=== PATIENT | male | born 1935 | race Asian ===

== ENCOUNTER 2019-09-23 17:54 | Inpatient (IN) | payer OTHER ==
[~2019-09-23] VITALS: Ht 152.4 cm; Wt 66.7 kg
[~2019-09-23 17:54] MED LIST: ALBUTEROL SULFATE IH; ASPI-1093 PO; BACI1PAC TP; CALC-106 GT; COL100L GT; DONE10TA10 PO; FLOR250 PO; GLIM2TAB GT; IPRATROPIUM IH; LANS30EC3 GT; MEMA10TA GT; METF850T GT; MULT5SOL7 GT; PIPE1SOL IV; SLIDE SUBQ; [UNRECOGNIZED DRUG - CODE] GT
[2019-09-23 18:02] VITALS: BP 120/68
--- NOTE | 2019-09-23 18:32 | NUR ---
PATIENT PRESENTS TO ED VIA GURNEY FROM [facility]. STAFF AT FACILITY REPORTING DECREASE 02 SAT AT 90% AND ALOC. +FEVER -N/V REPORTED -PAIN -. PERLLA SLUGGISH 2MM. PT IS NON-VERBAL AND UNABLE TO FOLLOW COMMANDS. GCS 9. PT IS ABLE TO WITHRAW FOREARM TO PAIN. UNABLE TO ASSESS MOTOR STRENGTH. SKIN IS WARM/DRY; LUNGS WITH CRACKLES THROUGHOUT; HR EVEN AND REGULAR; PATIENT POSITIONED FOR COMFORT; HOB ELEVATED; BEDRAILS UP X2; BED DOWN. ER MD MADE AWARE OF PT STATUS.
[2019-09-23 18:48] LABS: BASOPHILS # (AUTO) 0.1 K/uL (0.00-0.22); BASOPHILS % (AUTO) 0.5 % (0.0-2.0); EOSINOPHILS # (AUTO) 0.1 K/uL (0-0.4); EOSINOPHILS % (AUTO) 0.6 % (0.0-4.0); HEMATOCRIT 41.4 % (36-52); HEMOGLOBIN 13.5 g/dL (12.0-18.0); LYMPHOCYTES # (AUTO) 2.2 K/uL (2.0-11.5); LYMPHOCYTES % (AUTO) 18.2 % (20.5-51.1); MEAN CORPUSCULAR HEMOGLOBIN 28 pg (27-31); MEAN CORPUSCULAR HGB CONC 33 g/dL (33-37); MEAN CORPUSCULAR VOLUME 84.2 fL (80-94); MONOCYTES # (AUTO) 0.9 K/uL (0.8-1.0); MONOCYTES % (AUTO) 7.6 % (1.7-9.3); NEUTROPHILS # (AUTO) 8.6 K/uL (1.8-7.7); NEUTROPHILS % (AUTO) 73.1 % (42.2-75.2); PLATELET COUNT (AUTO) 275 K/uL (140-450); RED BLOOD CELL COUNT(AUTO) 4.92 MIL/uL (4.20-6.10); RED CELL DISTRIBUTION WIDTH 14.3 % (11.6-13.7); WHITE BLOOD COUNT (AUTO) 11.8 K/uL (4.8-10.8)
[2019-09-23] MEDS ORDERED: ACETAMINOPHEN 650 MG SUPP RC ONE (18:55)
[2019-09-23 19:01] LABS: ALBUMIN 3.9 g/dL (3.4-5.0); ANION GAP 17.8 (8-16); ASPARTATE AMINOTRANSFERASE 22 U/L (15-37); CARBON DIOXIDE 22.7 mmol/L (21-32); CHLORIDE 100 mmol/L (98-107); GLUCOSE 160 mg/dL (74-106); POTASSIUM 4.5 mmol/L (3.5-5.1); SODIUM SERUM 136 mmol/L (136-145); TOTAL BILIRUBIN 0.9 mg/dL (0.0-1.0); UREA NITROGEN, BLOOD 19 mg/dL (7-18)
[2019-09-23] MEDS ORDERED: NACL 0.9% 1,000 ML IV ONE ×2 (19:10→20:10)
[2019-09-23 19:14] LABS: APPEARANCE,URINE CLEAR (CLEAR); BILIRUBIN,URINE NEGATIVE (NEGATIVE); BLOOD, URINE TRACE-I (NEGATIVE); COLOR,URINE YELLOW (YELLOW); LEUKOCYTE ESTERASE ,URINE NEGATIVE (NEGATIVE); NITRITE, URINE NEGATIVE (NEGATIVE); PH,URINE 5.5 (5.0-9.0); UGLUCOSE NEGATIVE (NEGATIVE)
[2019-09-23 19:19] LABS: RBC,URINE NONE SEEN /HPF (0-5); WBC,URINE NONE SEEN /HPF (0-5)
--- NOTE | 2019-09-23 19:20 | NUR ---
REPORT TO AUGUSTINE CRISTOBAL. ALL CARE TRANSFERED.
[2019-09-23] MEDS ORDERED: cefTRIAXone 1,000 MG VIAL ONE (19:27)
--- NOTE | 2019-09-23 19:43 | NUR ---
Dr. Arnett examining patient.
--- NOTE | 2019-09-23 20:00 | NUR ---
PT IN BED. COOLING MEASURES CONTINUED. VSS. NO RESPIRATORY DISTRESS. CONTINUE TO MONITOR.
[2019-09-23] MEDS ORDERED: VANCOMYCIN 1,000 MG in DEXTROSE 5% 250 ML IV ONE (20:10)
[2019-09-23] MEDS ORDERED: MEROPENEM 1,000 MG in NACL 0.9% 100 ML IV ONE (20:10)
[2019-09-23] MEDS ORDERED: VANCOMYCIN 1,000 MG VIAL ONE (20:18)
[2019-09-23] MEDS ORDERED: MEROPENEM 500 MG VIAL IV ONE (20:44)
[2019-09-23] MEDS ORDERED: MORPHINE SULFATE 2 MG/ML SYR IVP PRN (20:50)
[2019-09-23] MEDS ORDERED: HYDROcodone/APAP 7.5/325 MG 1 TAB PO PRN (20:50)
[2019-09-23] MEDS ORDERED: ONDANSETRON 4 MG/2 ML VIAL IM/IVP PRN (20:50)
[2019-09-23] MEDS ORDERED: MEROPENEM 1,000 MG VIAL IV ONE (20:58)
--- NOTE | 2019-09-23 21:00 | NUR ---
PT HAS PRODUCTIVE COUGH. SUCTION PROVIDED AT BEDSIDE. PT TOLLERATED WELL. AUDIBLE WHEEZING HEARD. ER MD MADE AWARE. VSS. MILD RESPIRATORY DISTRESS WITH O2SAT OF 99% WITH NC 3LPM. CONTINUE TO MONITOR.
[2019-09-23] MEDS ORDERED: ACETAMIN/CODEINE 120/12MG-5ML 5 ML UDC PO ONE (21:10)
[2019-09-23] MEDS ORDERED: LORazepam 2 MG/ML VIAL IVP PRN (21:25)
[2019-09-23] MEDS ORDERED: ATOR40TA PO (21:28)
[2019-09-23] MEDS ORDERED: GLIP5TER PO (21:29)
[2019-09-23] MEDS ORDERED: METF1000 PO (21:30)
[2019-09-23] MEDS ORDERED: ALBUTEROL SULFATE/IPRATROPIU 3 ML SOL IH PRN (21:30)
[2019-09-23 21:33] LABS: CHOL/HDL RATIO 2.8 (1-4.5); FREE T4 (FREE THYROXINE) 1.12 ng/dL (0.76-1.46); MAGNESIUM 2.1 mg/dL (1.8-2.4); PHOSPHORUS 3.3 mg/dL (2.5-4.9); THYROID STIMULATING HORMONE 0.87 uIU/mL (0.34-3.74)
[2019-09-23] MEDS ORDERED: SLIDE SUBQ (21:35)
[2019-09-23 21:37] LABS: PROTHROMBIN TIME 10.4 secs (10.8-13.4)
[2019-09-23] MEDS ORDERED: OMEP20TC12 PO (21:38)
--- NOTE | 2019-09-23 22:00 | NUR ---
PT IN BED RESTING WITH EYES CLOSED. NO RESPIRATORY DISTRESS. VSS. PREPARING TO TRANSFER TO [facility]. CONTINUE TO MONITOR.
[2019-09-23 22:30] VITALS: BP 101/65
--- NOTE | 2019-09-23 22:30 | NUR ---
REPORT GIVEN AND CARE TRANSFERED TO KATYA BRADSHAW ROOM 121B. TRANSFERED VIA GURNEY WITH VSS.
--- NOTE | 2019-09-23 22:30 | NUR ---
RECEIVED PT FROM ER NURSE, SUSU. PT CAME IN [facility], NOT AMBULATORY. NO SOB NOTED. BREATHING EVEN AND UNLABORED WITH 3LPM O2 VIA NC. IV SITE ON LEFT HAND, 24G. PATENT, INTACT AND ASYMPTOMATIC. SKIN WARM AND DRY TO TOUCH. NO OPEN WOUND. DISCOLORATION NOTED ON GROIN AREA FOLLOWED BY DIAPER LINE. PHOTO TAKEN. MRSA NARES SWAB DONE. BOARD UPDATED. PT APHASIC. DX: PNA, SEPSIS. FALL PRECAUTION IN PLACE. STANDARD PRECAUTION IN PLACE. BED IN LOW POSITION, CALL LIGHT WITHIN REACH.
[2019-09-24] VITALS: BP 99/63
--- NOTE | 2019-09-24 | NUR ---
VS CHECKED, WITHIN PT'S BASELINE. WILL CONTINUE TO MONITOR.
[2019-09-24] MEDS: NACL 0.9% 1,000 ML IV SCH ×2 (02:00→16:36)
--- NOTE | 2019-09-24 02:00 | NUR ---
CHANGED FLUID RATE TO 60MLS/HR MD ORDERED. PT TOLERATED WELL.
[2019-09-24 04:00] VITALS: BP 139/61
--- NOTE | 2019-09-24 04:05 | NUR ---
VS CHECKED, WITHIN PT'S BASELINE, WILL CONTINUE TO MONITOR.
[2019-09-24] MEDS ORDERED: PIPERACILLIN/TAZOBACTAM 3.375 GM VIAL IV ONE (04:33)
[2019-09-24] MEDS: PIPERACILLIN/TAZOBACTAM 3.375 GM in DEXTROSE 5% 50 ML IV SCH ×3 (04:40→20:46)
--- NOTE | 2019-09-24 04:40 | NUR ---
GIVEN ZOSYN MD ORDERED. PT TOLERATED WELL. WILL CONTINUE TO MONITOR. BED IN LOW POSITION, CALL LIGHT WITHIN REACH.
--- NOTE | 2019-09-24 06:39 | NUR ---
PT SLEEPING IN BED. NO ACUTE DISTRESS NOTED.
[2019-09-24] MEDS: ALBUTEROL SULFATE/IPRATROPIU 3 ML SOL IH SCH ×3 (07:10→19:23)
--- NOTE | 2019-09-24 07:20 | NUR ---
RECEIVED PT FROM NIGHT NURSE. PT ASLEEP IN BED. NO DISTRESS NOTED. RESPIRATIONS EVEN AND UNLABORED ON O2 NC 3L. SKIN INTACT. IV IN PLACE L HAND 24G PATENT ASYMPTOMATIC INFUSING PER ORDER. SAFETY MEASURES IN PLACE. BED IN LOW POSITION. CALL LIGHT WITHIN REACH. WILL CONTINUE TO MONITOR.
[2019-09-24 07:45] LABS: BASOPHILS # (AUTO) 0.1 K/uL (0.00-0.22); BASOPHILS % (AUTO) 0.6 % (0.0-2.0); EOSINOPHILS # (AUTO) 0.2 K/uL (0-0.4); EOSINOPHILS % (AUTO) 1.3 % (0.0-4.0); HEMATOCRIT 37.2 % (36-52); HEMOGLOBIN 12.2 g/dL (12.0-18.0); LYMPHOCYTES # (AUTO) 1.5 K/uL (2.0-11.5); LYMPHOCYTES % (AUTO) 10.3 % (20.5-51.1); MEAN CORPUSCULAR HEMOGLOBIN 28 pg (27-31); MEAN CORPUSCULAR HGB CONC 33 g/dL (33-37); MEAN CORPUSCULAR VOLUME 84.4 fL (80-94); MONOCYTES # (AUTO) 1.1 K/uL (0.8-1.0); NEUTROPHILS # (AUTO) 11.5 K/uL (1.8-7.7); NEUTROPHILS % (AUTO) 79.8 % (42.2-75.2); PLATELET COUNT (AUTO) 289 K/uL (140-450); WHITE BLOOD COUNT (AUTO) 14.4 K/uL (4.8-10.8)
[2019-09-24 08:00] VITALS: BP 104/49
--- NOTE | 2019-09-24 08:22 | NUR ---
PATIENT HAS BEEN SCREENED AND CATEGORIZED HIGH NUTRITION RISK. PATIENT WILL BE SEEN WITHIN 1-2 DAYS OF ADMISSION. 09/24/19-09/25/[address]
[2019-09-24] MEDS: DOCUSATE 100 MG/10 ML UDC GT SCH (08:27)
[2019-09-24] MEDS: MEMANTINE 10 MG TAB PO SCH ×2 (08:27→20:47)
[2019-09-24] MEDS: LANSOPRAZOLE 30 MG CAPDR PO SCH (08:27)
[2019-09-24] MEDS: metFORMIN 500 MG TAB PO SCH ×2 (08:27→16:52)
[2019-09-24] MEDS: ATORVASTATIN 20 MG TAB PO SCH (08:28)
--- NOTE | 2019-09-24 08:31 | NUR ---
MEDICATIONS ADMINISTERED PER ORDER. PT TOELRATED WELL. NO DISTRESS NOTED. WILL CONTINUE TO MONITOR.
[2019-09-24 09:54] LABS: ANION GAP 16.9 (8-16); CARBON DIOXIDE 21.2 mmol/L (21-32); CHLORIDE 103 mmol/L (98-107); GLUCOSE 179 mg/dL (74-106); POTASSIUM 4.1 mmol/L (3.5-5.1); SODIUM SERUM 137 mmol/L (136-145)
[2019-09-24 09:55] LABS: CREATININE 0.9 mg/dL (0.7-1.3); UREA NITROGEN, BLOOD 16 mg/dL (7-18)
--- NOTE | 2019-09-24 10:52 | NUR ---
PT LYING IN BED SLEEPING, NO DISTRESS NOTED. FLACC 0. SAFETY MEASURES IN PLACE. WILL CONTINUE TO MONITOR.
[2019-09-24 12:00] VITALS: BP 105/49
--- NOTE | 2019-09-24 13:28 | NUR ---
STRONG NPC SATURATION 98% ON SUPPLEMENTAL OXYGEN AT 3 LPM VIA NC POST HHN THERAPY TITRATED FIO2 TO 2LPM JAN/RN NOTIFIED
--- NOTE | 2019-09-24 13:40 | NUR ---
*S.T. Bedside swallow eval completed* See report. Pt presents w/ adequate oropharyngeal swallow function for textures given. Pt edentulous and his reported baseline diet is pureed w/ nectar thick liquids. No overt s/s aspiration observed while COLOR CHECKER ROVING OR YARN fed pt lunch tray, observed by clinician. Recommend: 1) Continue current diet of puree with nectar thick liquids. Straws okay. 2) Crush P.O. meds and mix w/ puree such as applesauce. 3) 1:1 feeder w/ aspiration precautions. 4) Aggressive oral care. Pt is observed to be functioning at his reported baseline level. No further swallow tx indicated at this time. DC to [facility]. Endorsed to AUGUSTINE Potts. Time 8019-1299 Addendum: 09/24/19 at 1354 by Dina VALLES FNS to provide nectar thick bedside water.
--- NOTE | 2019-09-24 13:42 | NUR ---
RECEIVED CALL FROM RT. AFTER BREATHING TREATMENT O2 NC WAS MODIFIED TO 2L FROM 3L. WILL CONTINUE TO MONITOR.
--- NOTE | 2019-09-24 14:23 | NUR ---
09/24/19 RD INITIAL ASSESSMENT COMPLETED PLEASE REFER TO NUTRITION ASSESSMENT UNDER CARE ACTIVITY FOR ESTIMATED NUTRITIONAL NEEDS. 1. RECOMMEND CCHO, PUREE DIET 2. MODIFY DIET PER ST RECOMMENDATIONS 3. RD TO FOLLOW-UP 3-5 DAYS, MODERATE RISK BOBY BRADLEY, RD
[2019-09-24 16:00] VITALS: BP 106/67
[2019-09-24] MEDS ORDERED: RIVAROXABAN 10 MG TAB PO SCH ×2 (16:30)
--- NOTE | 2019-09-24 16:41 | NUR ---
MEDICATIONS ADMINISTERED PER ORDER. PT TOLERATED WELL. NO DISTRESS NOTED. SAFETY MEASURES IN PLACE. WILL CONTINUE TO MONITOR.
[2019-09-24] MEDS: RIVAROXABAN 15 MG TAB PO SCH (16:56)
--- NOTE | 2019-09-24 19:12 | NUR ---
REPORT GIVEN TO NIGHT NURSE FOR CONTINUITY OF CARE.
--- NOTE | 2019-09-24 19:13 | NUR ---
RECEIVED BEDSIDE REPORT FROM DAY RN. PT IS APHASIC. ABLE TO FOLLOW SIMPLE COMMANDS. RESPIRATIONS EVEN AND UNLABORED ON O2 NC 3L. HAS SOME WHEEZING. SKIN INTACT. IV IN PLACE L HAND 24G PATENT ASYMPTOMATIC INFUSING PER ORDER. SAFETY MEASURES IN PLACE. BED IN LOW POSITION. CALL LIGHT WITHIN REACH. WILL CONTINUE TO MONITOR.
[2019-09-24 20:00] VITALS: BP 132/60
--- NOTE | 2019-09-24 20:46 | NUR ---
RHEA MEDICATIONS WERE CRUSHED AND GIVEN WITH APPLESAUCE. VITAL SIGNS ARE WITHIN NORMAL LIMITS. PT TOLERATED WELL. ALL NEEDS MET AT THIS TIME.
[2019-09-24] MEDS: DONEPEZIL 10 MG TAB PO SCH (20:47)
--- NOTE | 2019-09-24 20:47 | NUR ---
PATIENT GIVEN HHN TX, LANGUAGE BARRIER. PT RHONCHI BREATHSOUNDS BUT UNABLE TO GET PATIENT TO COUGH, DESPITE VERBAL AND DEMONSTRATED INSTRUCTIONS.
--- NOTE | 2019-09-24 22:38 | NUR ---
PT IS LAYING COMFORTABLY IN BED SLEEPING. CALL LIGHT IS WITHIN REACH. BED ALARM ON.
[2019-09-25] VITALS: BP 107/50
--- NOTE | 2019-09-25 00:15 | NUR ---
VITAL SIGNS ARE WITHIN NORMAL LIMITS. ALL NEEDS MET AT THIS TIME.
[2019-09-25] MEDS: NACL 0.9% 1,000 ML IV SCH ×3 (01:51→22:36)
--- NOTE | 2019-09-25 02:30 | NUR ---
PT IS SLEEPING COMFORTABLY IN BED. CHEST RISE AND FALL. ALL SAFETY MEASURES ARE IN PLACE.
[2019-09-25 04:00] VITALS: BP 102/55
--- NOTE | 2019-09-25 04:00 | NUR ---
VITAL SIGNS ARE WITHIN NORMAL LIMITS. ALL NEEDS MET AT THIS TIME. CALL LIGHT IS WITHIN REACH.
[2019-09-25] MEDS: PIPERACILLIN/TAZOBACTAM 3.375 GM in DEXTROSE 5% 50 ML IV SCH ×3 (04:57→21:04)
[2019-09-25 06:21] LABS: BASOPHILS # (AUTO) 0.1 K/uL (0.00-0.22); BASOPHILS % (AUTO) 0.6 % (0.0-2.0); EOSINOPHILS # (AUTO) 0.9 K/uL (0-0.4); EOSINOPHILS % (AUTO) 8.5 % (0.0-4.0); HEMOGLOBIN 11.4 g/dL (12.0-18.0); LYMPHOCYTES # (AUTO) 2.2 K/uL (2.0-11.5); LYMPHOCYTES % (AUTO) 20.3 % (20.5-51.1); MEAN CORPUSCULAR HEMOGLOBIN 28 pg (27-31); MEAN CORPUSCULAR HGB CONC 33 g/dL (33-37); MEAN CORPUSCULAR VOLUME 85.1 fL (80-94); MONOCYTES # (AUTO) 1.2 K/uL (0.8-1.0); MONOCYTES % (AUTO) 10.7 % (1.7-9.3); NEUTROPHILS # (AUTO) 6.6 K/uL (1.8-7.7); NEUTROPHILS % (AUTO) 59.9 % (42.2-75.2); PLATELET COUNT (AUTO) 219 K/uL (140-450); RED BLOOD CELL COUNT(AUTO) 4.12 MIL/uL (4.20-6.10); RED CELL DISTRIBUTION WIDTH 14.5 % (11.6-13.7)
--- NOTE | 2019-09-25 07:12 | NUR ---
GAVE BEDSIDE REPORT TO DAY RN. PT ENDORSED IN STABLE CONDITION.
[2019-09-25 07:17] LABS: ANION GAP 12.3 (8-16); CARBON DIOXIDE 25.7 mmol/L (21-32); CHLORIDE 108 mmol/L (98-107); CREATININE 0.7 mg/dL (0.7-1.3); GLUCOSE 177 mg/dL (74-106); SODIUM SERUM 142 mmol/L (136-145); UREA NITROGEN, BLOOD 17 mg/dL (7-18)
--- NOTE | 2019-09-25 07:30 | NUR ---
RECEIVED PT FROM NIGHT NURSE. PT ASLEEP AROUSABLE TO SPEECH. AAOX2. RESPIRATIONS EVEN AND UNLABORED ON ROOM AIR, BILATERAL CRACKLES PRESENT. IV IN PLACE PATENT AND ASYMPTOMATIC INFUSING PER ORDER IN L HAND 24G. SKIN INTACT. PT CLEANED AND CHANGED WITH GOVERNMENT OPERATIONS CONSULTANT AT THIS TIME. SAFETY MEASURES IN PLACE. BED IN LOW POSITION. CALL LIGHT WITHIN REACH. WILL CONTINUE TO MONITOR.
[2019-09-25] MEDS: ALBUTEROL SULFATE/IPRATROPIU 3 ML SOL IH SCH ×3 (07:41→20:28)
[2019-09-25 08:00] VITALS: BP 114/69
[2019-09-25] MEDS ORDERED: SODIUM PHOSPHATE 15 MMOLE in NACL 0.9% 250 ML IV SCH (09:30)
[2019-09-25] MEDS: MEMANTINE 10 MG TAB PO SCH ×2 (09:44→21:03)
[2019-09-25] MEDS: LANSOPRAZOLE 30 MG CAPDR PO SCH (09:44)
[2019-09-25] MEDS: metFORMIN 500 MG TAB PO SCH ×2 (09:44→16:41)
[2019-09-25] MEDS: DOCUSATE 100 MG/10 ML UDC GT SCH (09:44)
[2019-09-25] MEDS: ATORVASTATIN 20 MG TAB PO SCH (09:44)
[2019-09-25] MEDS: LACTOBACILLUS RHAMNOSUS GG 1 EACH CAP PO SCH (09:44)
--- NOTE | 2019-09-25 09:55 | NUR ---
MEDICATIONS ADMINISTERED PER ORDER. PT TOLERATED WELL. NO DISTRESS NOTED. FLACC 0. WILL CONTINUE TO MONITOR.
--- NOTE | 2019-09-25 12:14 | NUR ---
MEDICATIONS ADMINISTERED PER ORDER. PT TOLERATED WELL. WILL CONTINUE TO MONITOR.
--- NOTE | 2019-09-25 15:36 | NUR ---
PT WAS CHANGED AND REPOSITIONED WITH ADDRESS CHANGE CLERK. PT IN RIGHT SIDE POSITION. NO DISTRESS NOTED. WILL CONTINUE TO MONITOR.
[2019-09-25] MEDS: RIVAROXABAN 15 MG TAB PO SCH (16:41)
--- NOTE | 2019-09-25 16:51 | NUR ---
MEDICATIONS ADMINISTERED PER ORDER. PT TOLERATED WELL. WILL CONTINUE TO MONITOR.
[2019-09-25] MEDS ORDERED: glipiZIDE 5 MG TAB PO SCH (17:45)
--- NOTE | 2019-09-25 19:23 | NUR ---
REPORT RECEIVED FROM AM NURSE AT BEDSIDE. PT IN STABLE CONDITION. AAOX1-2. BOARD UPDATED. FLACC 0. NO SOB ON 2L O2 VIA NC. AFEBRILE. PT IS BEDBOUND. PT IS APHASIC. IV SITE L HAND 24G RUNNING NS@100ML/HR PATENT AND INTACT. SKIN WARM, DRY, AND INTACT WITH NO OPEN WOUNDS. BED LOCKED IN LOW POSITION. CALL NAGEL WITHIN REACH. SAFETY PRECAUTION IN PLACE. ALL NEEDS MET AT THIS TIME.
[2019-09-25] MEDS ORDERED: ACETYLCYSTEINE 10% (100 MG/ML) 100 MG/ML VIAL INH SCH (19:30)
--- NOTE | 2019-09-25 20:29 | NUR ---
RECEIVED PT ON 2L NC, SP02 97%. HOB>30. NO RESPIRATORY DISTRESS NOTED AT THIS TIME. TX GIVEN ORDERED. NO ADVERSE REACTION. WILL CONTINUE TO MONITOR PT
[2019-09-25] MEDS ORDERED: metFORMIN 500 MG TAB PO SCH (21:00)
[2019-09-25] MEDS: DONEPEZIL 10 MG TAB PO SCH (21:03)
--- NOTE | 2019-09-25 21:04 | NUR ---
LASHAESYN HUNG AND RUNNING. ARICEPT AND NAMENDA GIVEN PO WITH APPLESAUCE. PT TOLERATED WELL.
--- NOTE | 2019-09-25 22:30 | NUR ---
PT SLEEPING COMFORTABLY BUT AROUSABLE. NO S/S OF DISTRESS NOTED. WILL CONTINUE TO MONITOR.
--- NOTE | 2019-09-25 23:50 | NUR ---
PT SLEEPING COMFORTABLY BUT AROUSABLE. NO S/S OF DISTRESS NOTED. NO COMPLAINTS OF PAIN. NO SOB. AFEBRILE. WILL CONTINUE TO MONITOR.
[2019-09-26] VITALS: BP 134/69
--- NOTE | 2019-09-26 01:45 | NUR ---
PT SLEEPING COMFORTABLY BUT AROUSABLE. NO S/S OF DISTRESS NOTED. RESPIRATIONS EVEN, UNLABORED, AND WNL. WILL CONTINUE TO MONITOR.
[2019-09-26] MEDS: PIPERACILLIN/TAZOBACTAM 3.375 GM in DEXTROSE 5% 50 ML IV SCH ×3 (04:00→20:22)
--- NOTE | 2019-09-26 04:00 | NUR ---
ARIEL HUNG AND RUNNING. PT TOLERATING WELL.
[2019-09-26] MEDS: NACL 0.9% 1,000 ML IV SCH (04:06)
[2019-09-26] MEDS ORDERED: ACETYLCYSTEINE 10% (100 MG/ML) 100 MG/ML VIAL INH SCH (06:00)
[2019-09-26 06:06] LABS: BASOPHILS # (AUTO) 0.1 K/uL (0.00-0.22); BASOPHILS % (AUTO) 0.5 % (0.0-2.0); EOSINOPHILS # (AUTO) 1.2 K/uL (0-0.4); EOSINOPHILS % (AUTO) 11.5 % (0.0-4.0); HEMOGLOBIN 10.1 g/dL (12.0-18.0); LYMPHOCYTES % (AUTO) 18.9 % (20.5-51.1); MEAN CORPUSCULAR HEMOGLOBIN 28 pg (27-31); MEAN CORPUSCULAR HGB CONC 34 g/dL (33-37); MEAN CORPUSCULAR VOLUME 83.7 fL (80-94); MONOCYTES # (AUTO) 0.8 K/uL (0.8-1.0); MONOCYTES % (AUTO) 7.5 % (1.7-9.3); NEUTROPHILS # (AUTO) 6.6 K/uL (1.8-7.7); NEUTROPHILS % (AUTO) 61.6 % (42.2-75.2); PLATELET COUNT (AUTO) 216 K/uL (140-450); RED BLOOD CELL COUNT(AUTO) 3.58 MIL/uL (4.20-6.10); RED CELL DISTRIBUTION WIDTH 14.2 % (11.6-13.7); WHITE BLOOD COUNT (AUTO) 10.7 K/uL (4.8-10.8)
--- NOTE | 2019-09-26 06:30 | NUR ---
PT SLEEPING COMFORTABLY BUT AROUSABLE. PT IN STABLE CONDITION.
[2019-09-26 06:38] LABS: ANION GAP 13.1 (8-16); CARBON DIOXIDE 24.5 mmol/L (21-32); CHLORIDE 106 mmol/L (98-107); CREATININE 0.8 mg/dL (0.7-1.3); GLUCOSE 110 mg/dL (74-106); POTASSIUM 3.6 mmol/L (3.5-5.1); SODIUM SERUM 140 mmol/L (136-145); UREA NITROGEN, BLOOD 12 mg/dL (7-18)
[2019-09-26 07:01] LABS: MAGNESIUM 1.8 mg/dL (1.8-2.4); PHOSPHORUS 2.4 mg/dL (2.5-4.9)
--- NOTE | 2019-09-26 07:10 | NUR ---
RECEIVED BEDSIDE REPORT FROM RESPIRATORY THERAPY ASSISTANT NURSE FOR CONTINUITY OF CARE. PATIENT IS RESTING ON BED AT THIS TIME. AROUSABLE TO VOICE. UNABLE TO ASSESS NEURO DUE TO PATIENT IS NON-VERBAL. RESPIRATION EVEN AND UNLABORED ON 2LPM VIA NC. NO SIGNS OF DISTRESS NOTED. IV PATENT AND INTACT, INFUSING PER MD ORDER. PATIENT IS INCONTINENT AND BEDREST. SKIN INTACT AND CLEAN. ASPIRATION PRECAUTION IN PLACE. SAFETY MEASURES IN PLACE. BED IN LOW POSITION AND CALL LIGHT WITHIN REACH. FALL RISK PROTOCOL IN PLACE AND BED ALARM ACTIVATED.
[2019-09-26] MEDS: ALBUTEROL SULFATE/IPRATROPIU 3 ML SOL IH SCH ×3 (07:29→20:01)
[2019-09-26 08:00] VITALS: BP 111/53
[2019-09-26] MEDS ORDERED: metFORMIN 500 MG TAB PO SCH (08:00)
[2019-09-26] MEDS: glipiZIDE 5 MG TAB PO SCH (08:57)
[2019-09-26] MEDS: LACTOBACILLUS RHAMNOSUS GG 1 EACH CAP PO SCH (08:58)
[2019-09-26] MEDS: metFORMIN 500 MG TAB PO SCH ×2 (08:58→17:30)
[2019-09-26] MEDS: MEMANTINE 10 MG TAB PO SCH ×2 (08:58→20:22)
[2019-09-26] MEDS: LANSOPRAZOLE 30 MG CAPDR PO SCH (08:58)
[2019-09-26] MEDS: ATORVASTATIN 20 MG TAB PO SCH (08:59)
[2019-09-26] MEDS: DOCUSATE 100 MG/10 ML UDC GT SCH (08:59)
--- NOTE | 2019-09-26 08:59 | NUR ---
ADMINISTERED SCHEDULED MEDS PER MD ORDER, CRUSHED MEDS AND MIXED WITH APPLE SAUCE, THICKENED WATER FOR ASPIRATION PRECAUTION. MEDS EDUCATION PROVIDED TO PATIENT AND REINFORCEMENT NEEDED. PATIENT IS RESTING ON BED AT THIS TIME. RESPIRATION EVEN AND UNLABORED ON 2LPM VIA NC. NO SIGNS OF DISTRESS NOTED. SAFETY MEASURES IN PLACE. BED IN LOW POSITION AND CALL LIGHT WITHIN REACH. FALL RISK PROTOCOL IN PLACE AND BED ALARM ACTIVATED.
[2019-09-26] MEDS ORDERED: DEXTROSE 50% 50 ML SYR IVP PRN (09:25)
--- NOTE | 2019-09-26 09:40 | NUR ---
PATIENT IS RESTING ON BED AT THIS TIME. FLACC 0. RESPIRATION EVEN AND UNLABORED ON 2LPM VIA NC. NO SIGNS OF DISTRESS NOTED. SAFETY MEASURES IN PLACE. BED IN LOW POSITION AND CALL LIGHT WITHIN REACH. FALL RISK PROTOCOL IN PLACE AND BED ALARM ACTIVATED.
--- NOTE | 2019-09-26 11:20 | NUR ---
PATIENT IS RESTING ON BED AT THIS TIME. NO SIGNS OF DISTRESS NOTED. SAFETY MEASURES IN PLACE. BED IN LOW POSITION AND CALL LIGHT WITHIN REACH. BED ALARM ACTIVATED.
[2019-09-26] MEDS: BLOOD GLUCOSE MONITORING 1 DEV DEV FS SCH ×3 (11:30→20:23)
[2019-09-26] MEDS: INSULIN LISPRO SLIDING SCALE 100 UNITS/ML VIAL SUBQ PRN (12:36)
--- NOTE | 2019-09-26 12:36 | NUR ---
PATIENT GOT HIS LUNCH TRAY. ADMINISTERED 2 UNITS OF HUMALOG FOR BLOOD GLUCOSE 165, PATIENT TOLERATED WELL. THEATRE DIRECTOR IS ASSISTING PATIENT TO EAT LUNCH AT THIS TIME. NO SIGNS OF DISTRESS NOTED. SAFETY MEASURES IN PLACE. BED IN LOW POSITION AND CALL LIGHT WITHIN REACH. FALL RISK PROTOCOL IN PLACE AND BED ALARM ACTIVATED.
[2019-09-26] MEDS: ACETYLCYSTEINE 10% (100 MG/ML) 100 MG/ML VIAL INH SCH ×2 (13:25→20:01)
--- NOTE | 2019-09-26 13:31 | NUR ---
ADMINISTERED MED VIA IVPB, PATIENT TOLERATED WELL. PATIENT IS GETTING A BREATHING TREATMENT AT THIS TIME. NO SIGNS OF DISTRESS NOTED. SAFETY MEASURES IN PLACE. BED IN LOW POSITION AND CALL LIGHT WITHIN REACH. FALL RISK PROTOCOL IN PLACE AND BED ALARM ACTIVATED.
--- NOTE | 2019-09-26 15:25 | NUR ---
PATIENT IS RESTING ON BED AT THIS TIME. AROUDSABLE VOICE, RESPIRATION EVEN AND UNLABORED ON RA. FLACC 0. NO SIGNS OF DISTRESS NOTED. SAFETY MEASURES IN PLACE. BED IN LOW POSITION AND CALL LIGHT WITHIN REACH. FALL RISK PROTOCOL IN PLACE AND BED ALARM ACTIVATED.
--- NOTE | 2019-09-26 15:41 | NUR ---
Dc planning: Clinicals faxed to [facility] .
[2019-09-26 16:00] VITALS: BP 109/59
--- NOTE | 2019-09-26 16:14 | NUR ---
[facility] 1[facility]. Brad Garcia will arrange for transportation olive picker. Discharging nurse tomorrow will call [place] for time of olive picker for the pt. Alejandrina COUCH.
[2019-09-26] MEDS: RIVAROXABAN 15 MG TAB PO SCH (17:30)
--- NOTE | 2019-09-26 17:30 | NUR ---
ADMINISTERED SCHEDULED MEDS PER MD ORDER, CRUSHED MEDS AND MIXED WITH APPLE SAUCE, THICKENED WATER FOR ASPIRATION PRECAUTION. MEDS EDUCATION PROVIDED TO PATIENT AND REINFORCEMENT NEEDED. PATIENT IS RESTING ON BED AT THIS TIME. RESPIRATION EVEN AND UNLABORED ON RA. NO SIGNS OF DISTRESS NOTED. SAFETY MEASURES IN PLACE. BED IN LOW POSITION AND CALL LIGHT WITHIN REACH. FALL RISK PROTOCOL IN PLACE AND BED ALARM ACTIVATED.
--- NOTE | 2019-09-26 19:23 | NUR ---
ENDORSED PATIENT AT BEDSIDE TO TRUCKER NURSE FOR CONTINUITY OF CARE. PATIENT AWAKE AND RESTING ON BED. NO SIGNS OF DISTRESS NOTED. PATIENT IS IN STABLE CONDITION. SAFETY MEASURES IN PLACE. BED IN LOW POSITION AND CALL LIGHT WITHIN REACH. FALL RISK PROTOCOL IN PLACE AND BED ALARM ACTIVATED.
--- NOTE | 2019-09-26 19:24 | NUR ---
RECEIVED BEDSIDE REPORT FROM DAY SHIFT NURSEJACINTO FOR CONTINUITY OF CARE. PATIENT IS RESTING ON BED AT THIS TIME. AROUSABLE TO VOICE. UNABLE TO ASSESS NEURO DUE TO PATIENT IS NON-VERBAL. RESPIRATION EVEN AND UNLABORED ON 2LPM VIA NC. NO SIGNS OF DISTRESS NOTED. IV SITE ON LEFT HAND, 24G, PATENT, INTACT, AND ASYMPTOMATIC, INFUSING PER MD ORDER. PATIENT IS INCONTINENT AND BEDREST. SKIN INTACT AND CLEAN. ASPIRATION PRECAUTION IN PLACE. SAFETY MEASURES IN PLACE. BOARD UPDATED. BED IN LOW POSITION AND CALL LIGHT WITHIN REACH. FALL RISK PROTOCOL IN PLACE AND BED ALARM ACTIVATED.
[2019-09-26] MEDS: DONEPEZIL 10 MG TAB PO SCH (20:22)
--- NOTE | 2019-09-26 20:22 | NUR ---
BS CHECKED, 129. NO INSULIN COVERAGE NEEDED. GIVEN ZOSYN, ARICEPT, AND NAMENDA MD ORDERED. PT TOLERATED WELL.
--- NOTE | 2019-09-26 22:22 | NUR ---
PT AWAKE, LYING IN THE BED COMFORTABLY. NO ACUTE DISTRESS NOTED.
[2019-09-27] VITALS: BP 128/67
--- NOTE | 2019-09-27 00:05 | NUR ---
CHECKED VS, WITHIN PT'S BASELINE. WILL CONTINUE TO MONITOR.
--- NOTE | 2019-09-27 02:09 | NUR ---
PT SLEEPING IN BED. NO ACUTE DISTRESS NOTED. BED IN LOW POSITION, CALL LIGHT WITHIN REACH.
[2019-09-27] MEDS: NACL 0.9% 1,000 ML IV SCH (04:36)
[2019-09-27] MEDS: PIPERACILLIN/TAZOBACTAM 3.375 GM in DEXTROSE 5% 50 ML IV SCH ×2 (04:38→12:57)
--- NOTE | 2019-09-27 04:38 | NUR ---
GIVEN ZOSYN MD ORDERED. PT TOLERATED WELL. WILL CONTINUE TO MONITOR.
[2019-09-27] MEDS: BLOOD GLUCOSE MONITORING 1 DEV DEV FS SCH ×3 (06:47→16:57)
--- NOTE | 2019-09-27 06:48 | NUR ---
PT SLEEPING IN THE BED. NO ACUTE DISTRESS NOTED. BS CHECKED, 90. NO INSULIN COVERAGE NEEDED.
[2019-09-27 07:32] LABS: ANION GAP 10.1 (8-16); CARBON DIOXIDE 27.7 mmol/L (21-32); CHLORIDE 108 mmol/L (98-107); CREATININE 0.7 mg/dL (0.7-1.3); GLUCOSE 96 mg/dL (74-106); POTASSIUM 3.8 mmol/L (3.5-5.1); SODIUM SERUM 142 mmol/L (136-145); UREA NITROGEN, BLOOD 11 mg/dL (7-18)
--- NOTE | 2019-09-27 07:38 | NUR ---
RECEIVED BEDSIDE REPORT FROM VENDING TECHNICIAN NURSE FOR CONTINUITY OF CARE. PATIENT IS RESTING ON BED AT THIS TIME. AROUSAL TO VOICE. UNABLE TO ASSESS NEURO DUE TO PATIENT IS NON-VERBAL. RESPIRATIONS ARE EVEN AND UNLABORED ON RA. NO SIGNS OF DISTRESS OR PAIN NOTED. IV SITE ON LEFT HAND, 24G, PATENT, INTACT, AND ASYMPTOMATIC, INFUSING PER MD ORDER. PATIENT IS INCONTINENT AND ON BEDREST. SKIN IS INTACT AND CLEAN. ASPIRATION PRECAUTIONS IN PLACE. SAFETY MEASURES IN PLACE. BOARD UPDATED. BED IN LOW POSITION AND CALL LIGHT WITHIN REACH. FALL RISK PROTOCOL IN PLACE AND BED ALARM ACTIVATED FOR SAFETY. WILL ROUND FREQUENTLY ON PT.
[2019-09-27 07:39] LABS: MAGNESIUM 1.9 mg/dL (1.8-2.4); PHOSPHORUS 2.9 mg/dL (2.5-4.9)
[2019-09-27] MEDS: ALBUTEROL SULFATE/IPRATROPIU 3 ML SOL IH SCH ×2 (07:48→13:32)
[2019-09-27] MEDS: ACETYLCYSTEINE 10% (100 MG/ML) 100 MG/ML VIAL INH SCH ×2 (07:49→13:32)
[2019-09-27] MEDS ORDERED: RANI150C PO (07:55)
[2019-09-27 07:59] LABS: BASOPHILS % (AUTO) 0.3 % (0.0-2.0); EOSINOPHILS # (AUTO) 1.5 K/uL (0-0.4); EOSINOPHILS % (AUTO) 13.1 % (0.0-4.0); HEMATOCRIT 31.7 % (36-52); HEMOGLOBIN 10.3 g/dL (12.0-18.0); LYMPHOCYTES # (AUTO) 2.2 K/uL (2.0-11.5); LYMPHOCYTES % (AUTO) 19.3 % (20.5-51.1); MEAN CORPUSCULAR HEMOGLOBIN 28 pg (27-31); MEAN CORPUSCULAR HGB CONC 33 g/dL (33-37); MEAN CORPUSCULAR VOLUME 84.9 fL (80-94); MONOCYTES # (AUTO) 0.7 K/uL (0.8-1.0); MONOCYTES % (AUTO) 6.2 % (1.7-9.3); NEUTROPHILS # (AUTO) 6.8 K/uL (1.8-7.7); NEUTROPHILS % (AUTO) 61.1 % (42.2-75.2); PLATELET COUNT (AUTO) 255 K/uL (140-450); RED BLOOD CELL COUNT(AUTO) 3.74 MIL/uL (4.20-6.10); RED CELL DISTRIBUTION WIDTH 14.5 % (11.6-13.7); WHITE BLOOD COUNT (AUTO) 11.2 K/uL (4.8-10.8)
[2019-09-27] MEDS ORDERED: PIPE1SOL IV (07:59)
[2019-09-27 08:00] VITALS: BP 111/57
[2019-09-27] MEDS ORDERED: LACT-81 PO (08:00)
[2019-09-27] MEDS ORDERED: LANS15EC28 PO (08:31)
--- NOTE | 2019-09-27 09:21 | NUR ---
MORNING MEDS GIVEN . PT TOLERATED WELL. PT RESTING IN BED. ALL NEEDS MET. WILL CONTINUE TO ROUND FREQUENTLY ON PT. BED IN LOW POSITION, CALL LIGHT WITHIN REACH.
[2019-09-27] MEDS: DOCUSATE 100 MG/10 ML UDC GT SCH (09:36)
[2019-09-27] MEDS: MEMANTINE 10 MG TAB PO SCH (09:37)
[2019-09-27] MEDS: glipiZIDE 5 MG TAB PO SCH (09:37)
[2019-09-27] MEDS: LACTOBACILLUS RHAMNOSUS GG 1 EACH CAP PO SCH (09:37)
[2019-09-27] MEDS: metFORMIN 500 MG TAB PO SCH (09:38)
[2019-09-27] MEDS: ATORVASTATIN 20 MG TAB PO SCH (09:38)
[2019-09-27] MEDS: LANSOPRAZOLE 30 MG CAPDR PO SCH (09:40)
--- NOTE | 2019-09-27 11:24 | NUR ---
PT RESTING IN BED. ALL NEEDS MET. WILL CONTINUE TO ROUND FREQUENTLY ON PT. BED IN LOW POSITION, CALL LIGHT WITHIN REACH.
[2019-09-27] MEDS: INSULIN LISPRO SLIDING SCALE 100 UNITS/ML VIAL SUBQ PRN (13:01)
--- NOTE | 2019-09-27 13:39 | NUR ---
ALL NEEDS MET. WILL CONTINUE TO ROUND FREQUENTLY ON PT. BED IN LOW POSITION, CALL LIGHT WITHIN REACH.
--- NOTE | 2019-09-27 15:30 | NUR ---
PT SLEEPING. ALL NEEDS MET. WILL CONTINUE TO ROUND FREQUENTLY ON PT. BED IN LOW POSITION, CALL LIGHT WITHIN REACH.
--- NOTE | 2019-09-27 15:45 | NUR ---
WHITNEY [facility] AT [phone]. SHE SAID SHE IS NOT ABLE TO GET TRANSPORT AT THIS TIME. SHE SAID IF WE CAN ARRANGE TRANSPORT WITH [facility] THEN [facility]. [employer] CALLED AND SPOKE TO KITA AT [phone] HE SAID TRANSPORT WILL BE AT 5PM AND THEY WILL BILL [facility] BERNSTEIN RN IS AWARE
[2019-09-27 16:00] VITALS: BP 109/52
--- NOTE | 2019-09-27 16:40 | NUR ---
PT DISCHARGED BACK TO [facility]. PT DISCHARGE PAPERWORK UNABLE TO BE SIGNED. ALL DISCHARGE PAPERWORK INCLUDED IN DISCHARGE FOLDERS. PT IV LEFT IN FOR CONTINUATION OF ABX THERAPY. ALL PERSONAL BELONGINGS TAKEN HOME WITH PT. WRIST BAND REMOVED AND PLACED IN SHRED BIN. PT TRANSFERRED BY TRANSPORT TEAM. PT LEFT IN STABLE CONDITION.
== END 2019-09-27 16:50 | DRG 871 ==
LOC: MED 17:54 → MTU 20:51
PROVIDERS: ADMIT General Practice; ATTEND General Practice
DX: A41.9 Sepsis, unspecified organism (principal); J69.0 Pneumonitis due to inhalation of food and vomit; J96.01 Acute respiratory failure with hypoxia; E43 Unspecified severe protein-calorie malnutrition; R65.20 Severe sepsis without septic shock; E78.5 Hyperlipidemia, unspecified; E83.39 Other disorders of phosphorus metabolism; F03.90 Unspecified dementia, unspecified severity, without behavioral disturbance, psychotic disturbance, mood disturbance, and anxiety; I10 Essential (primary) hypertension; K21.9 Gastro-esophageal reflux disease without esophagitis; R13.10 Dysphagia, unspecified; Z66 Do not resuscitate; E11.65 Type 2 diabetes mellitus with hyperglycemia; Z79.01 Long term (current) use of anticoagulants; Z86.711 Personal history of pulmonary embolism; Z99.3 Dependence on wheelchair; Z79.84 Long term (current) use of oral hypoglycemic drugs; Z79.899 Other long term (current) drug therapy; Z68.28 Body mass index [BMI] 28.0-28.9, adult
CPT/HCPCS: 36415; 36600; 71045; 80048; 80053; 81001; 82550; 82803; 82948; 83036; 83605; 83735; 83880; 84100; 84439; 84443; 84484; 85025; 85610; 85730; 87040; 87081; 87086; 92610; 93005; 94640; 94667; 96365; 96366; 96367; 97110; 97161-GP; 97530; 99291; J0696; J1815; J2185; J2543; J3370; J7030; J7060; J7620; Q0092

== ENCOUNTER 2020-01-28 13:25 | Inpatient (IN) | payer OTHER ==
[~2020-01-28] VITALS: Ht 162.6 cm; Wt 63.0 kg
[2020-01-28 13:25] VITALS: BP 100/59
[~2020-01-28 13:25] MED LIST changes: -ALBUTEROL SULFATE IH; -ASPI-1093 PO; +ATOR40TA PO; -BACI1PAC TP; -CALC-106 GT; -FLOR250 PO; -GLIM2TAB GT; +GLIP5TER PO; -IPRATROPIUM IH; +LACT-81 PO; +LANS15EC28 PO; -LANS30EC3 GT; +METF1000 PO; -METF850T GT
--- NOTE | 2020-01-28 13:29 | NUR ---
PT VICKI ALS TO ER BED 6
--- NOTE | 2020-01-28 13:30 | NUR ---
84/M BIBA FROM [facility] FLU SYMPTOMS, WAS FLU A+. WAS GIVEN BREATHING [place] PREHOSPITAL. PT AWAKE, LETHARGIC, APHASIC AT THIS TIME, ABLE TO TRACK WITH EYES, SKIN NORMAL COLOR WARM AND DRY, SPO2 95% ON 4L NC, RR 30 EVEN AND MODERATELY LABORED, TEMP 99.6. LUNG SOUNDS WITH RHONCHI. S1S2 PRESENT, NSR ON MONITOR. BS ACTIVE X4, ABD SOFT ROUND NONTENDER. HX DM, GERD WITH DYSPHAGIA, HLD, ANEMIA, ANXIETY, CATARACT
[2020-01-28] MEDS ORDERED: NACL 0.9% 1,000 ML IV SCH ×2 (13:53→16:21)
[2020-01-28] MEDS ORDERED: cefTRIAXone 1,000 MG in DEXT 5% MINI-BAG PLUS 50 ML IV ONE (13:55)
[2020-01-28] MEDS ORDERED: cefTRIAXone 1,000 MG VIAL ONE (14:15)
[2020-01-28 14:23] LABS: BASOPHILS # (AUTO) 0.1 K/uL (0.00-0.22); BASOPHILS % (AUTO) 0.6 % (0.0-2.0); EOSINOPHILS % (AUTO) 0.2 % (0.0-4.0); HEMATOCRIT 37.3 % (36-52); HEMOGLOBIN 12.6 g/dL (12.0-18.0); LYMPHOCYTES # (AUTO) 2.8 K/uL (2.0-11.5); LYMPHOCYTES % (AUTO) 21.6 % (20.5-51.1); MEAN CORPUSCULAR HEMOGLOBIN 28 pg (27-31); MEAN CORPUSCULAR HGB CONC 34 g/dL (33-37); MEAN CORPUSCULAR VOLUME 81.3 fL (80-94); MONOCYTES # (AUTO) 0.9 K/uL (0.8-1.0); MONOCYTES % (AUTO) 6.7 % (1.7-9.3); NEUTROPHILS # (AUTO) 9.2 K/uL (1.8-7.7); NEUTROPHILS % (AUTO) 70.9 % (42.2-75.2); PLATELET COUNT (AUTO) 240 K/uL (140-450); RED BLOOD CELL COUNT(AUTO) 4.58 MIL/uL (4.20-6.10); RED CELL DISTRIBUTION WIDTH 15.4 % (11.6-13.7)
[2020-01-28 14:38] LABS: ALBUMIN 3.2 g/dL (3.4-5.0); ANION GAP 12.8 (8-16); ASPARTATE AMINOTRANSFERASE 38 U/L (15-37); CARBON DIOXIDE 23.1 mmol/L (21-32); CHLORIDE 101 mmol/L (98-107); CREATININE 1.1 mg/dL (0.6-1.3); GLUCOSE 188 mg/dL (74-106); POTASSIUM 3.9 mmol/L (3.5-5.1); SODIUM SERUM 133 mmol/L (136-145); TOTAL BILIRUBIN 0.9 mg/dL (0.0-1.0); UREA NITROGEN, BLOOD 23 mg/dL (7-18)
[2020-01-28 14:52] LABS: APPEARANCE,URINE CLEAR (CLEAR); BILIRUBIN,URINE NEGATIVE (NEGATIVE); BLOOD, URINE NEGATIVE (NEGATIVE); COLOR,URINE YELLOW (YELLOW); LEUKOCYTE ESTERASE ,URINE NEGATIVE (NEGATIVE); NITRITE, URINE NEGATIVE (NEGATIVE); PH,URINE 5.5 (5.0-9.0); UGLUCOSE 1+ (NEGATIVE)
--- NOTE | 2020-01-28 15:30 | NUR ---
PT AWAKE IN BED, LOOKING AROUND. NO DISTRESS NOTED AT THIS TIME
[2020-01-28] MEDS ORDERED: ALBUTEROL SULFATE/IPRATROPIU 3 ML SOL IH PRN (16:25)
[2020-01-28] MEDS ORDERED: HYDROcodone/APAP 5/325 MG 1 TAB TAB PO PRN (16:25)
[2020-01-28] MEDS ORDERED: ZOLPIDEM 5 MG TAB PO PRN (16:25)
[2020-01-28] MEDS ORDERED: MORPHINE SULFATE 2 MG/ML SYR IVP PRN (16:25)
[2020-01-28] MEDS ORDERED: DOCUSATE SODIUM 100 MG GELCAP PO PRN (16:25)
[2020-01-28] MEDS ORDERED: ACETAMINOPHEN 325 MG TAB PO PRN (16:25)
[2020-01-28] MEDS ORDERED: LORazepam 2 MG/ML VIAL IM/IVP PRN (16:25)
[2020-01-28] MEDS ORDERED: ONDANSETRON 4 MG/2 ML VIAL IM/IVP PRN (16:25)
[2020-01-28] MEDS ORDERED: NITROGLYCERIN 0.4 MG TAB SL PRN (16:30)
[2020-01-28] MEDS ORDERED: DEXTROSE 50% 50 ML SYR IVP PRN (16:35)
[2020-01-28] MEDS ORDERED: CALC-784 PO (17:00)
[2020-01-28] MEDS ORDERED: OMEP20TC10 PO (17:00)
[2020-01-28] MEDS ORDERED: METF-350 PO (17:00)
--- NOTE | 2020-01-28 17:00 | NUR ---
PT RESTING IN BED
[2020-01-28 17:09] LABS: PROTHROMBIN TIME 9.5 secs (10.8-13.4)
[2020-01-28 17:13] LABS: BARBITURATE, URINE NEGATIVE ng/ml (NEG <=200); BENZODIAZEPINE, URINE NEGATIVE ng/mL (NEG <=200); CANNABINOID, URINE NEGATIVE ng/mL (NEG <=50); COCAINE, URINE NEGATIVE ng/mL (NEG <=300); OPIATE, URINE NEGATIVE ng/mL (NEG <=2000); PHENCYCLIDINE SCREEN,URINE NEGATIVE ng/mL (NEG <=25)
[2020-01-28 17:19] LABS: CHOL/HDL RATIO 1.8 (1-4.5); PHOSPHORUS 2.1 mg/dL (2.5-4.9); THYROID STIMULATING HORMONE 1.33 uIU/mL (0.34-3.74)
[2020-01-28 17:30] VITALS: BP 102/57
--- NOTE | 2020-01-28 17:30 | NUR ---
SHIFT REPORT RECEIVED FROM ER NURSE BRIANA. PT CAME TO UNIT VIA GURNEY. ADMISSION ASSESSMENT DONE. PT ON O2 2L NC. SKIN INTACT . NOTED WITH SACRAL SCARS. SKIN INTACT. IV INTACT. PT IS AWAKE AND RESPONSIVE. PT IS AOX1. SAFETY MEASURES IN PLACE. WILL CONTINUE TO MONITOR. CALL LIGHT IN REACH.
--- NOTE | 2020-01-28 17:44 | NUR ---
Patient will be admitted to care of DR. ESPARZA. Admited to TELEMETRY. Will go to room 114. Belongings list completed. Report to AUGUSTINE DALAL.
[2020-01-28] MEDS: PIPERACILLIN/TAZOBACTAM 3.375 GM in DEXTROSE 5% 50 ML IV SCH (18:14)
[2020-01-28] MEDS ORDERED: HEPARIN PER PHARMACY MC PRN (18:15)
--- NOTE | 2020-01-28 19:18 | NUR ---
RECEIVED REPORT FORM MULUGETA BRADSHAW DAYSHIFT NURSE AT BEDSIDE FOR CONTINUITY OF CARE, PT IN STABLE CONDITION.
--- NOTE | 2020-01-28 19:31 | NUR ---
SHIFT REPORT GIVEN TO PRESSURE TESTING TECHNICIAN NURSE. PT IS IN STABLE CONDITION. CALL LIGHT IN REACH.
[2020-01-28] MEDS: ALBUTEROL SULFATE/IPRATROPIU 3 ML SOL IH SCH (19:42)
[2020-01-28 20:00] VITALS: BP 112/59
--- NOTE | 2020-01-28 20:00 | NUR ---
PT IN BED AND ON 2 LITERS N/C NOTED WITH INTERMITTED DRY COUGH. HE IS AOX1, WITH IV SITE ON RIGHT HAND INTACT AND RUNNING N/S AT 60MLS /HR. PT ALSO HAS CORONADO CATHETER INTACT AND DRAINED 200MLS OF DARK MONIKA URINE. PT V/S FOLLOWS: T 100.5 P 86 R 20 B/P 112/59 02 98% WITH 2 LITERS VIA N/C. PT HAS NO S/S OF PAIN OR DISTRESS NOTED, ALL FALLS AND DROPLET PRECAUTIONS IN PLACE.
--- NOTE | 2020-01-28 20:30 | NUR ---
SPOKE WITH WHITNEY FROM [facility] WHO SAID SHE WAS TRYING TO REACH PT DAUGHTER, SHE ALSO WANTED TO KNOW IF PT WAS BEING ADMITTED. CONFIRMED PT ADMISSION AND HOW PT CAN SWALLOW PILLS. REQUESTED THAT WE CALL PT SNF, [facility] IF WE HEAR FROM PT DAUGHTER.
[2020-01-28] MEDS: BLOOD GLUCOSE MONITORING 1 DEV DEV FS SCH (21:00)
[2020-01-28] MEDS ORDERED: ATORVASTATIN 20 MG TAB PO SCH (21:00)
--- NOTE | 2020-01-28 21:15 | NUR ---
ULTRA SOUND OF BILATERAL LOWER EXTREMITIES ARE BEING DONE AT BEDSIDE TO RULE OUT DVT. HEPARIN GTT ORDER PENDING.
[2020-01-28] MEDS: hePARIN / DEXT 5% PREMIX 250 ML IV SCH (21:48)
--- NOTE | 2020-01-28 21:50 | NUR ---
PT GIVEN ALL SCHEDULED MEDS AT THIS TIME INCLUDING PO/PRN TYLENOL FOR MILD FEVER. ICE PACKS ALSO PROVIDED. HEPARIN GTT STARTED PER PROTOCOL. BLOOD DRAWS DONE AT BEDSIDE FOR TROPONIN LEVEL. ALL FALLS AND DROPLET PRECAUTIONS IN PLACE.
[2020-01-28] MEDS: MEMANTINE 10 MG TAB GT SCH (22:06)
[2020-01-28] MEDS: ATORVASTATIN 20 MG TAB PO SCH (22:06)
[2020-01-28] MEDS: DONEPEZIL 10 MG TAB PO SCH (22:06)
[2020-01-28] MEDS ORDERED: CRUSHER, PILL MC ONE (22:08)
[2020-01-28] MEDS: OSELTAMIVIR PHOSPHATE 75 MG CAP PO SCH (22:09)
[2020-01-28] MEDS: METOPROLOL 25 MG TAB PO SCH (22:09)
--- NOTE | 2020-01-28 23:15 | NUR ---
SILVA FROM LAB CALLED TO REPORT CRITICAL LAB OF TROPONIN 0.246. RESIDENT MD ALONZO MADE AWARE, NO NEW ORDERS NOTED.
[2020-01-29] VITALS: BP 96/50
[2020-01-29] MEDS: PIPERACILLIN/TAZOBACTAM 3.375 GM in DEXTROSE 5% 50 ML IV SCH ×4 (02:00→17:39)
[2020-01-29 04:00] VITALS: BP 89/46
[2020-01-29] MEDS: BLOOD GLUCOSE MONITORING 1 DEV DEV FS SCH ×4 (05:24→21:55)
[2020-01-29 06:08] LABS: BASOPHILS # (AUTO) 0.1 K/uL (0.00-0.22); BASOPHILS % (AUTO) 0.7 % (0.0-2.0); EOSINOPHILS # (AUTO) 0.1 K/uL (0-0.4); EOSINOPHILS % (AUTO) 1.1 % (0.0-4.0); HEMATOCRIT 31.2 % (36-52); HEMOGLOBIN 10.5 g/dL (12.0-18.0); LYMPHOCYTES # (AUTO) 1.8 K/uL (2.0-11.5); LYMPHOCYTES % (AUTO) 20.1 % (20.5-51.1); MEAN CORPUSCULAR HEMOGLOBIN 27 pg (27-31); MEAN CORPUSCULAR HGB CONC 34 g/dL (33-37); MEAN CORPUSCULAR VOLUME 81.5 fL (80-94); MONOCYTES # (AUTO) 0.8 K/uL (0.8-1.0); MONOCYTES % (AUTO) 9.3 % (1.7-9.3); NEUTROPHILS # (AUTO) 6.2 K/uL (1.8-7.7); NEUTROPHILS % (AUTO) 68.8 % (42.2-75.2); PLATELET COUNT (AUTO) 196 K/uL (140-450); RED BLOOD CELL COUNT(AUTO) 3.83 MIL/uL (4.20-6.10); RED CELL DISTRIBUTION WIDTH 14.9 % (11.6-13.7)
[2020-01-29] MEDS ORDERED: DEXT 5% / NACL 0.9% 500 ML IV SCH (06:10)
[2020-01-29] MEDS: hePARIN / DEXT 5% PREMIX 250 ML IV SCH ×3 (06:33→22:56)
[2020-01-29 07:03] LABS: MAGNESIUM 1.7 mg/dL (1.8-2.4); PHOSPHORUS 2.2 mg/dL (2.5-4.9)
[2020-01-29 07:05] LABS: ANION GAP 13.1 (8-16); CARBON DIOXIDE 23.2 mmol/L (21-32); CHLORIDE 106 mmol/L (98-107); GLUCOSE 89 mg/dL (74-106); POTASSIUM 3.3 mmol/L (3.5-5.1); SODIUM SERUM 139 mmol/L (136-145); UREA NITROGEN, BLOOD 21 mg/dL (7-18)
--- NOTE | 2020-01-29 07:10 | NUR ---
RECEIVED PT FROM NIGHT NURSE IN STABLE CONDITION. PT AAOX1, DIVEHI SPEAKING, NO DISTRESS NOTED. RESPIRATIONS EVEN AND UNLABORED ON O2 VIA NC AT 2L. SKIN INTACT. IV IN PLACE PATENT AND ASYMPTOMATIC INFUSING PER ORDER IN R HAND 24G AND L FINGER 24G. CORONADO IN PLACE. SAFETY MEASURES IN PLACE. CALL LIGHT WITHIN REACH, BED IN LOW POSITION. WILL CONTINUE TO MONITOR.
[2020-01-29 08:00] VITALS: BP 107/59
[2020-01-29] MEDS ORDERED: POLYVINYL ALCOHOL 1.4% OP 15 ML SOL OP PRN (08:45)
[2020-01-29] MEDS: DEXT 5% /NACL 0.9% 1,000 ML IV SCH (08:55)
[2020-01-29] MEDS: ALBUTEROL SULFATE/IPRATROPIU 3 ML SOL IH SCH ×3 (09:20→19:30)
[2020-01-29] MEDS: METOPROLOL 25 MG TAB PO SCH ×2 (09:23→21:57)
[2020-01-29] MEDS: LACTOBACILLUS RHAMNOSUS GG 1 EACH CAP PO SCH (09:23)
[2020-01-29] MEDS: LISINOPRIL 5 MG TAB PO SCH (09:25)
[2020-01-29] MEDS: PANTOPRAZOLE 40 MG TABEC PO SCH (09:26)
[2020-01-29] MEDS: MEMANTINE 10 MG TAB GT SCH ×2 (09:26→21:55)
[2020-01-29] MEDS: ASPIRIN 81 MG TAB.CHEW PO SCH (09:26)
[2020-01-29] MEDS: OSELTAMIVIR PHOSPHATE 75 MG CAP PO SCH ×2 (09:26→21:57)
--- NOTE | 2020-01-29 09:30 | NUR ---
MEDICATIONS ADMINISTERED PER ORDER, PT TOLERATED WELL, NO DISTRESS NOTED, SAFETY MEASURES IN PLACE. CALL LIGHT WITHIN REACH. WILL CONTINUE TO MONITOR.
[2020-01-29] MEDS: glipiZIDE ER 5 MG TABER PO SCH (09:34)
--- NOTE | 2020-01-29 10:12 | NUR ---
R UA PICC LINE INSERTED AT THIS TIME, PLACEMENT VERIFIED WITH CXR. WILL CONTINUE TO MONITOR.
[2020-01-29] MEDS ORDERED: MAG SULF 2000 MG/WATER PREMIX 50 ML IV SCH (11:00)
[2020-01-29] MEDS ORDERED: MAG SULF 2000 MG/WATER PREMIX 50 ML IV ONE (11:25)
[2020-01-29] MEDS ORDERED: KCL 20 MEQ/WATER INJ PREMIX 100 ML IV SCH (11:30)
[2020-01-29 12:00] VITALS: BP 96/47
[2020-01-29] MEDS ORDERED: SODIUM PHOS / POTASSIUM PHOS 1 PKT PDR PO SCH (12:00)
--- NOTE | 2020-01-29 12:45 | NUR ---
MEDICATIONS ADMINISTERED PER ORDER, PT TOLERATED WELL, NO DISTRESS NOTED. SAFETY MEASURES IN PLACE, CALL LIGHT WITHIN REACH, WILL CONTINUE TO MONITOR.
--- NOTE | 2020-01-29 13:32 | NUR ---
NO TX GIVEN AT THIS TIME PT IS RECEIVING A SWALLOW EVALUATION AND THEN HEADING TO CT, RN AWARE
--- NOTE | 2020-01-29 14:10 | NUR ---
*S.T. Bedside Swallow Eval completed* See report for details. Pt presents w/ adequate oropharyngeal swallow function for textures given. No overt s/s aspiration. Pt able to self feed w/ min. assistance. Recommend: 1) Advance to regular diet, thin liquids. Straws okay. 2) P.O. meds okay whole, one at a time. 3) Nsg to assist w/ positioning and tray set up to promote self feeding. No further tx indicated at this time. DC to nsg care. Endorsed to AUGUSTINE Mathis. Time 9314-5919 Addendum: 01/29/20 at 1416 by Dina VALLES Please disregard previous note. WRONG PATIENT. S.T. BEDSIDE SWALLOW EVAL COMPLETED Pt presents w/ adequate oropharyngeal swallow for textures given. Pt edentulous and no dentures were present at bedside. No overt s/s aspiration observed. Pt unable to self-feed. Recommend: 1) Advance to pureed diet, thin liquids okay. Straws okay. 2) P.O. meds crushed and mixed w/ puree such as applesauce. 3) 1:1 feeder w/ aspiration precautions including: feed only when alert, seated upright at 90 degrees, small sips/bites at slow pace. Upright at 45 degrees for 30 min. after meals. Oral care 3x/day. No further tx indicated at this time due to pt's limited rehab potential. DC to nsg care. Endorsed to AUGUSTINE Potts. Addendum: 01/29/20 at 1435 by Dina VALLES PLEASE DISREGARD TWO PREVIOUS NOTES DUE TO ERRORS. Pt presents w/ moderate pharyngeal dysphagia for textures given. Pt edentulous and no dentures were present at bedside. Wet/gurgly voice after swallow of thin liquid via straw. Pt unable to self-feed. Recommend: 1) Advance to pureed diet, nectar thick liquids only. Straws okay. 2) P.O. meds crushed and mixed w/ puree such as applesauce. 3) 1:1 feeder w/ aspiration precautions including: feed only when alert, seated upright at 90 degrees, small sips/bites at slow pace. Upright at 45 degrees for 30 min. after meals. Oral care 3x/day. No further tx indicated at this time due to pt's limited rehab potential. DC to nsg care. Endorsed to AUGUSTINE Potts.
--- NOTE | 2020-01-29 14:15 | NUR ---
HEPARIN DRIP STOPPED AT THIS TIME PER ORDER FOR 1 HOUR. WILL RESUME AT 1515.
--- NOTE | 2020-01-29 14:52 | NUR ---
01/29/20 INITIAL ASSESSMENT COMPLETED PLEASE REFER TO NUTRITION ASSESSMENT UNDER CARE ACTIVITY FOR ESTIMATED NUTRITIONAL NEEDS. 1. CONTINUE NPO MEDICALLY APPROPRIATE 2. IF/WHEN MEDICALLY CLEARED TO BEGIN PO INTAKE [facility]SID[facility] WITH NECTAR THICK LIQUIDS 3. RD TO FOLLOW-UP 2-3 DAYS, HIGH RISK [address]
--- NOTE | 2020-01-29 15:21 | NUR ---
Machine Shorthand Reporter Note: Basic Screen: Yes High Risk DC Screen Yes Name: SVITLANA JEREZ Home Relationship: DAUGHTER Pre-Admission Living Arrangements: SNF Prior ADL Total/Dependent Current Home Health Name/Tel: N/A Current DME/02 Name/Tel: [facility] Current Hospice Name/Tel: N/A Current Dialysis Name/Tel: N/A Healthcare Decision Maker: Next of Kin Other: SVITLANA JEREZ - DAUGHTER Advance Directive No Physician Orders for Life Sustaining Treatment Form Yes Discipline: Case Mgt/Social Svcs Tentative Discharge Plan/Destination: SNF/ECF Will require assistance post discharge: No Referred to Route Sales Person: No Tentative Discharge Plan Summary: Patient is an 84-year-old male admitted for pneumonia and influenza. Patient has PMHX of diabetes, dementia, GERD, hypertension, HLD, anxiety, and cataract. Patient was admitted from [facility]. SW contacted Cathie from [facility] [phone]. Per Cathie, patient is senior living and is currently on a bed hold. Patient's healthcare decision maker is daughter, Svitlana Jerez. Patient needs total assistance with ADLs. Tentative discharge plan is to return to [facility]. No further needs identified. Signature: IVIS Dugan Date: Jan 29, 2020 Time: 14:32
--- NOTE | 2020-01-29 15:22 | NUR ---
DC PLANNIN YRS OLD MALE PATIENT WAS ADMITTED FROM [facility] , WITH A DX OF PNEUMONIA , INFLUENZA A POSITIVE . PT HAS A HX OF PE, DM, ALZHEIMER'S AND GERD. CXR SHOWED SHOWING BILATERAL PERIHILAR OPACITIES EDEMA OR BRONCHITIS .BLOOD,URINE AND SPUTUM CULTURE PENDING . STARTED ON ZOSYN IV TAMIFLU, RT PROTOCOL, IVF AND PULMO CONSULT WITH DR BENTLEY. DC PLAN TO GO BACK TO [facility] WHEN STABLE CM TO FOLLOW. Addendum: 01/30/20 at 1523 by Amanda Garcia CM DC PLANNING: PT HAS A DC ORDER TOGO BACK TO [facility] ON SUNDAY OR SUNDAY PER WHITNEY HERNANDEZ [facility] AND WILL ACCEPT PT SUNDAY CM TO FOLLOW Addendum: 02/02/20 at 1225 by Tiffanie Dawson RECEIVED A CALL FROM WHITNEY. SHE STATED SHE WILL BE HERE PROBABLY IN AN HOUR TO SEE THE PATIENT. Addendum: 02/02/20 at 1528 by Tiffanie Dawson CM PER MICHAEL ESTRELLA, NO ISO BED AT THIS TIME. WILL FOLLOW UP. Addendum: 02/02/20 at 1605 by Tiffanie Dawson CM RECEIVED A DC ORDER BACK TO [facility]. CLINICALS FAXED TO [facility]. CONTACTED PATIENT'S DAUGHTER SVITLANA FERNANDEZ AT [phone] TO DISCUSS DC PLANNING, NO ANSWER. LEFT MESSAGE. WILL FOLLOW UP. Addendum: 02/02/20 at 1609 by Tiffanie Dawson PATIENT IS UNABLE TO SIGN IMM AND CHOICE OF VENDOR LETTERS. LEFT MESSAGE TO PATIENT'S DAUGHTER SVITLANA JEREZ. Addendum: 02/02/20 at 1618 by Tiffanie Dawson PER DR COMBS, PATIENT DOES NEED ISOLATION ANYMORE SINCE PATIENT IS ASYMPTOMATICCara [facility] MADE AWARE, SHE STATED THEY DO NOT HAVE A BED AT THIS TIME AND IF POSSIBLE TO TRANSFER THE PATIENT BACK TOMORROW. DR. COMBS AND CHARGE NURSE MADE AWARE. Addendum: 02/03/20 at 1657 by Tiffanie Dawson LATE ENTRY: PER GORDON MEDINA AT [facility], THEY ARE ABLE TO TAKE THE PATIENT BACK AND WILL GO TO ROOM 18D UNDER DR. SEVILLA. PER [facility] TRANSPORT AUTH H [id number]. PER [facility] VP GENETIC WILL BE AT 1830. PRIMARY RN JAN MADE AWARE.
--- NOTE | 2020-01-29 15:30 | NUR ---
HEPARIN DRIP RESUMED AT THIS TIME AND RATE LOWERED TO 4ML/H PER ORDER. PT IN STABLE CONDITION. WILL CONTINUE TO MONITOR.
[2020-01-29 16:00] VITALS: BP 102/56
--- NOTE | 2020-01-29 16:09 | NUR ---
BLOOD GLUCOSE IS 62. PT GIVEN APPLE JUICE. WILL REASSESS. PT IN STABLE CONDITION, NO DISTRESS NOTED.
[2020-01-29] MEDS ORDERED: SODIUM FERRIC GLUCONATE 125 MG in NACL 0.9% 100 ML IV SCH (17:00)
--- NOTE | 2020-01-29 18:52 | NUR ---
PT IN STABLE CONDITION, RESPIRATIONS EVEN AND UNLABORED ON 2L O2 NC. NO DISTRESS NOTED. DENIES PAIN. SAFETY MEASURES IN PLACE. WILL ENDORSE TO FUNCTIONAL TESTER FOR CONTINUITY OF CARE.
--- NOTE | 2020-01-29 19:00 | NUR ---
RECEIVED PT FROM MAKAYLA RN PT AAOX2 ON 2 LTS VIA NC ON PICC LINE ON RT UA PATENT 2 LUMENS, AND IV ON RT HAND GAUGE #24 ON HEPARIN DRIP 400 UNITS FOR HOUR, AND ON LEFT ARM IV INFUSING WELL NOT DISTRESS NOTED AT THIS TIME , ON TELEMETRY SR , CORONADO CATH DRAINING WELL MONIKA COLOR URINE INITIAL ASSESSMENT DONE
[2020-01-29 20:00] VITALS: BP 95/48
[2020-01-29] MEDS: DONEPEZIL 10 MG TAB PO SCH (21:56)
[2020-01-29] MEDS: ATORVASTATIN 20 MG TAB PO SCH (21:56)
--- NOTE | 2020-01-29 22:00 | NUR ---
BLOOD SUGAR TEST 118 PT TAKEN WELL THINK WATER AND MEDIC , ON TELMETRY SR
--- NOTE | 2020-01-29 23:00 | NUR ---
AT 2300 FOLLOW HEPARIN PROTOCOL PTT 85.8 PT WILL BE ON HEPARIN 300 UNITS /HOUR, PT REMAIN QUIET COOPERATIVE
[2020-01-30] VITALS: BP 86/46
[2020-01-30] MEDS: PIPERACILLIN/TAZOBACTAM 3.375 GM in DEXTROSE 5% 50 ML IV SCH ×4 (00:28→17:36)
[2020-01-30] MEDS: DEXT 5% /NACL 0.9% 1,000 ML IV SCH ×2 (01:35→18:06)
--- NOTE | 2020-01-30 01:37 | NUR ---
PT SLEEPING WELL NOT DISTRESS NOTED REPOSITIONED Q2H ON TELE SR
--- NOTE | 2020-01-30 03:00 | NUR ---
PT SLEEPING WELL ON HEPARIN DRIP 300 UNITS/H NOT SIGNS OF BLEEDING OR DISTRESS NOTED ON TELE SR
[2020-01-30 04:00] VITALS: BP 89/46
--- NOTE | 2020-01-30 04:00 | NUR ---
SPONGE BATH GIVEN LINEN CHANGED ON TELE SR CORONADO CATH DRRAINING WELL MONIKA CO;LENI URINE, ON HEPARIN DRIP 300 UNITS FOR H
[2020-01-30] MEDS: BLOOD GLUCOSE MONITORING 1 DEV DEV FS SCH ×4 (06:29→21:00)
--- NOTE | 2020-01-30 06:44 | NUR ---
;BLOOD SUGAR TEST 102 PT FOLLOW COMMANDS AND TOLERATED WELL THIK LIQUID AND APPLE SAUCE
--- NOTE | 2020-01-30 06:46 | NUR ---
PT WILL BE ENDORSED TO DAY SHIFT NURSE FOR CONTINUE OF CARE
[2020-01-30 06:54] LABS: MAGNESIUM 2.1 mg/dL (1.8-2.4); PHOSPHORUS 2.8 mg/dL (2.5-4.9)
[2020-01-30 07:00] LABS: BASOPHILS % (AUTO) 0.6 % (0.0-2.0); EOSINOPHILS # (AUTO) 0.2 K/uL (0-0.4); EOSINOPHILS % (AUTO) 4.7 % (0.0-4.0); HEMATOCRIT 23.2 % (36-52); HEMOGLOBIN 7.6 g/dL (12.0-18.0); LYMPHOCYTES # (AUTO) 1.4 K/uL (2.0-11.5); LYMPHOCYTES % (AUTO) 30.6 % (20.5-51.1); MEAN CORPUSCULAR HEMOGLOBIN 28 pg (27-31); MEAN CORPUSCULAR HGB CONC 33 g/dL (33-37); MEAN CORPUSCULAR VOLUME 84.1 fL (80-94); MONOCYTES # (AUTO) 0.4 K/uL (0.8-1.0); MONOCYTES % (AUTO) 8.6 % (1.7-9.3); NEUTROPHILS # (AUTO) 2.5 K/uL (1.8-7.7); NEUTROPHILS % (AUTO) 55.5 % (42.2-75.2); PLATELET COUNT (AUTO) 152 K/uL (140-450); RED BLOOD CELL COUNT(AUTO) 2.76 MIL/uL (4.20-6.10); RED CELL DISTRIBUTION WIDTH 15.3 % (11.6-13.7); WHITE BLOOD COUNT (AUTO) 4.6 K/uL (4.8-10.8)
[2020-01-30 07:07] LABS: ANION GAP 12.4 (8-16); CARBON DIOXIDE 22.9 mmol/L (21-32); CHLORIDE 107 mmol/L (98-107); GLUCOSE 95 mg/dL (74-106); POTASSIUM 3.3 mmol/L (3.5-5.1); SODIUM SERUM 139 mmol/L (136-145); UREA NITROGEN, BLOOD 17 mg/dL (7-18)
--- NOTE | 2020-01-30 07:10 | NUR ---
RECEIVED PT FROM NIGHT NURSE IN STABLE CONDITION. PT IN BED ASLEEP, NO DISTRESS NOTED, FLACC 0. IV IN PLACE PATENT AND ASYMPTOMATIC INFUSING PER ORDER IN L FINGER 22G AND R UA PICC LINE PATENT AND ASYMPTOMATIC AND R AC 22G INFUSING HEPARIN DRIP PER ORDER. SKIN INTACT. RESPIRATIONS EVEN AND UNLABORED ON O2 2L VIA NC. CORONADO CATH IN PLACE. SAFETY MEASURES IN PLACE, CALL LIGHT WITHIN REACH, BED IN LOW POSITION. WILL CONTINUE TO MONITOR.
[2020-01-30 08:00] VITALS: BP 103/50
[2020-01-30] MEDS: ALBUTEROL SULFATE/IPRATROPIU 3 ML SOL IH SCH ×3 (08:10→19:00)
[2020-01-30] MEDS: glipiZIDE ER 5 MG TABER PO SCH (08:28)
[2020-01-30] MEDS: MEMANTINE 10 MG TAB GT SCH ×2 (08:29→22:12)
[2020-01-30] MEDS: ASPIRIN 81 MG TAB.CHEW PO SCH (08:29)
[2020-01-30] MEDS: FERROUS SULFATE 325 MG TABEC PO SCH (08:29)
[2020-01-30] MEDS: LACTOBACILLUS RHAMNOSUS GG 1 EACH CAP PO SCH (08:29)
[2020-01-30] MEDS: ASCORBIC ACID 500 MG TAB PO SCH (08:30)
[2020-01-30] MEDS: LISINOPRIL 5 MG TAB PO SCH (08:30)
[2020-01-30] MEDS: PANTOPRAZOLE 40 MG TABEC PO SCH (08:30)
[2020-01-30] MEDS: OSELTAMIVIR PHOSPHATE 30 MG CAP PO SCH ×2 (08:40→22:13)
[2020-01-30] MEDS: METOPROLOL 25 MG TAB PO SCH ×2 (09:00→21:00)
[2020-01-30] MEDS ORDERED: KCL 20 MEQ/WATER INJ PREMIX 100 ML IV SCH (09:00)
--- NOTE | 2020-01-30 09:00 | NUR ---
MEDICATIONS WERE ADMINISTERED PER ORDER. TOLERATED WELL AND PATIENT WAS UNABLE TO SWALLOW PILLS WHOLE WOULD RECOMMEND CRUSHING AND GIVING MEDICATIONS WITH APPLESAUCE . SAFETY MEASURES IN PLACE, CALL; LIGHT WITHIN REACH, AND WILL CONTINUE TO MONITOR PT.
[2020-01-30] MEDS: RIVAROXABAN 15 MG TAB PO SCH ×2 (11:46→22:14)
[2020-01-30 12:00] VITALS: BP 79/40
--- NOTE | 2020-01-30 12:04 | NUR ---
PER PHARMACY ORDER, HEPARIN DRIP WAS DISCONTINUED AND REPLACED WITH XARELTO PO, OTHER MEDICATIONS WERE ADMINISTERED PER ORDERED. PT WAS AWAKE AND CHANGED, REMAINS IN STABLE CONDITION. SAFETY MEASURES IN PLACE, CALL LIGHT WITHIN REACH, AND WILL CONTINUE TO MONITOR.
[2020-01-30] MEDS: INSULIN LISPRO SLIDING SCALE 100 UNITS/ML VIAL SUBQ PRN ×3 (12:18→22:07)
--- NOTE | 2020-01-30 14:00 | NUR ---
PATIENT IS ASLEEP, REPOSITIONED, AND IN BED. NO SIGNS OF DISTRESS OR PAIN VIA FLACC. SAFETY MEASURES IN PLACE, CALL LIGHT IN REACH AND WILL CONTINUE TO MONITOR.
[2020-01-30 15:06] LABS: FOLIC ACID 17.4 ng/mL (>3.0)
[2020-01-30 16:00] VITALS: BP 121/46
--- NOTE | 2020-01-30 17:00 | NUR ---
MEDICATION ADMINISTERED PER PARAMETER. MEDICATION WAS TOLERATED WELL. PT IS AWAKE AND ALERT WITH FAMILY MEMBER AT BEDSIDE. PT REPORTS NO PAIN WITH NO SIGNS OF DISTRESS. SAFETY MEASURES IN PLACE, CALL LIGHT WITHIN REACH AND WILL CONTINUE PLAN OF CARE. Addendum: 01/30/20 at 1813 by Sarahi Thornton RN WRONG PATIENT.
--- NOTE | 2020-01-30 18:00 | NUR ---
MEDICATION WAS ADMINISTERED PER ORDERS. NO SIGNS OF DISTRESS NOTED USING FLACC SCALE. IV IS PATENT AND FLUSHED. SAFETY MEASURES IN PLACE, CALL LIGHT WITHIN REACH, AND WILL CONTINUE TO MONITOR.
--- NOTE | 2020-01-30 19:20 | NUR ---
ENDORSED PT TO NIGHT NURSE FOR CONTINUITY OF CARE.
--- NOTE | 2020-01-30 19:25 | NUR ---
RECEIVED REPORT FROM JAN BRADSHAW DAYSHIFT NURSE AT BEDSIDE FOR CONTINUITY OF CARE, PT IN STABLE CONDITION.
[2020-01-30 20:00] VITALS: BP 93/45
--- NOTE | 2020-01-30 20:00 | NUR ---
PT AOX1 WITH RU PIC LINE DOUBLE LUMEN RUNNING D5N/S AT 60 MLS/HR. PT HAS NO S/S OF PAIN OR DISTRESS NOTED. PT HAS N/C A RUNNING AT 2 LITERS VIA /N/C. LUNG SOUNDS DIMINISHED WITH CRACKLES. V/S FOLLOWS: T 97 P 77 R 20 B/P 93/45 02 98% WITH 2 LITERS VIA N/C. PT TURNED AND REPOSITIONED, ALL FALLS PRECAUTIONS IN PLACE.
--- NOTE | 2020-01-30 21:15 | NUR ---
PT GIVEN ALL ORDERED MEDS VIA P/O FINGERSTICK IS 338, PT GIVEN 8 UNITS OF HUMALOG COVERAGE. PT CORONADO CATHETER IN PLACE AND DRAINING DARK MONIKA URINE. PT TURNED, CHANGED AND REPOSITIONED IN BED. ALL FALLS PRECAUTIONS IN PLACE.
[2020-01-30] MEDS: ATORVASTATIN 20 MG TAB PO SCH (22:12)
[2020-01-30] MEDS: DONEPEZIL 10 MG TAB PO SCH (22:12)
[2020-01-31] VITALS: BP 108/53
--- NOTE | 2020-01-31 | NUR ---
PT TURNED AND REPOSITIONED IN BED NO S/S OF PAIN OR DISTRESS NOTED. V/S FOLLOWS: T 97.4 P 76 R 20 B/P 108/53 02 100% ON 2 LITERS VIA N/C.ALL FLUIDS RUNNING ORDERED VIA R UPPER PICC, CORONADO CATHETER IN PLACE AND ALL FALLS PRECAUTIONS IN PLACE.
[2020-01-31] MEDS: PIPERACILLIN/TAZOBACTAM 3.375 GM in DEXTROSE 5% 50 ML IV SCH ×4 (00:49→18:19)
--- NOTE | 2020-01-31 02:16 | NUR ---
PT IN BED SLEEPING NO S/S OF PAIN OR DISTRESS NOTED. FLUIDS RUNNING ORDERED CORONADO CATHER IN PLACE DRAINING DARK MONIKA URINE. ALL FALLS PRECAUTIONS IN PLACE.
[2020-01-31 04:00] VITALS: BP 93/53
--- NOTE | 2020-01-31 04:00 | NUR ---
PT IN BED V/S FOLLOWS; T 97.0 P 71 R 18 B/P 93/53 02 98% WITH 2 LITERS VIA N/C. PT WAS TURN, AND REPOSITIONED NO S/S OF PAIN OR DISTRESS NOTED. ALL FALLS PRECAUTIONS IN PLACE.
[2020-01-31] MEDS: INSULIN LISPRO SLIDING SCALE 100 UNITS/ML VIAL SUBQ PRN ×3 (05:33→16:57)
--- NOTE | 2020-01-31 05:36 | NUR ---
ROBN HUNG AND RUNNING AT 100MLS/HR ORDERED. PT FINGERSTICK IS 189, PT GIVEN 2 UNITS OF HUMALOG COVERAGE.
[2020-01-31 06:55] LABS: ANION GAP 11.9 (8-16); CARBON DIOXIDE 23.5 mmol/L (21-32); CHLORIDE 109 mmol/L (98-107); CREATININE 0.8 mg/dL (0.6-1.3); GLUCOSE 200 mg/dL (74-106); POTASSIUM 3.4 mmol/L (3.5-5.1); SODIUM SERUM 141 mmol/L (136-145); UREA NITROGEN, BLOOD 12 mg/dL (7-18)
[2020-01-31 06:59] LABS: MAGNESIUM 2.1 mg/dL (1.8-2.4); PHOSPHORUS 2.3 mg/dL (2.5-4.9)
[2020-01-31 07:06] LABS: BASOPHILS # (AUTO) 0.1 K/uL (0.00-0.22); EOSINOPHILS # (AUTO) 1.5 K/uL (0-0.4); EOSINOPHILS % (AUTO) 22.2 % (0.0-4.0); HEMATOCRIT 27.6 % (36-52); HEMOGLOBIN 9.2 g/dL (12.0-18.0); LYMPHOCYTES # (AUTO) 1.5 K/uL (2.0-11.5); LYMPHOCYTES % (AUTO) 21.9 % (20.5-51.1); MEAN CORPUSCULAR HEMOGLOBIN 28 pg (27-31); MEAN CORPUSCULAR HGB CONC 33 g/dL (33-37); MEAN CORPUSCULAR VOLUME 83.5 fL (80-94); MONOCYTES # (AUTO) 0.5 K/uL (0.8-1.0); MONOCYTES % (AUTO) 6.6 % (1.7-9.3); NEUTROPHILS # (AUTO) 3.3 K/uL (1.8-7.7); NEUTROPHILS % (AUTO) 48.3 % (42.2-75.2); PLATELET COUNT (AUTO) 193 K/uL (140-450); RED BLOOD CELL COUNT(AUTO) 3.31 MIL/uL (4.20-6.10); RED CELL DISTRIBUTION WIDTH 15.4 % (11.6-13.7); WHITE BLOOD COUNT (AUTO) 6.8 K/uL (4.8-10.8)
--- NOTE | 2020-01-31 07:25 | NUR ---
RECEIVED REPORT FROM BUCKLE STRAP PUNCHER NURSE. PATIENT SITTING IN BED WITH BREAKFAST TRAY IN FRONT. NO DISTRESS NOTED. SALES BRANCH MANAGER FEEDING PATIENT. AAOX2/3 WITH HX OF ALZHEIMER'S. RESPIRATIONS EVEN, UNLABORED, ON O2 2L/MIN VIA NC. IV SITE INTACT, PATENT, AND INFUSING IVF PER MD ORDERS. ABDOMEN SOFT, NON-DISTENDED. REVIEWED PLAN OF CARE WITH PATIENT. REINFORCEMENT NEEDED. SAFETY MEASURES IN PLACE, CALL LIGHT WITHIN REACH. WILL CONTINUE TO MONITOR .
[2020-01-31] MEDS: ALBUTEROL SULFATE/IPRATROPIU 3 ML SOL IH SCH ×3 (07:37→19:35)
--- NOTE | 2020-01-31 07:47 | NUR ---
LOC AWAKE PATIENT UNABLE TO FOLLOW COMMANDS FOR INCENTIVE SPIROMETRY Addendum: 01/31/20 at 0750 by Sean Macedo RT PMHX: DEMENTIA
[2020-01-31] MEDS: BLOOD GLUCOSE MONITORING 1 DEV DEV FS SCH ×4 (07:51→20:54)
[2020-01-31 08:00] VITALS: BP 97/52
[2020-01-31] MEDS: LISINOPRIL 5 MG TAB PO SCH (09:00)
[2020-01-31] MEDS: METOPROLOL 25 MG TAB PO SCH ×2 (09:00→21:00)
[2020-01-31] MEDS ORDERED: RIVAROXABAN 10 MG TAB PO SCH (09:00)
[2020-01-31] MEDS: ASCORBIC ACID 500 MG TAB PO SCH (09:02)
[2020-01-31] MEDS: FERROUS SULFATE 325 MG TABEC PO SCH (09:02)
[2020-01-31] MEDS: MEMANTINE 10 MG TAB GT SCH ×2 (09:03→21:17)
[2020-01-31] MEDS: OSELTAMIVIR PHOSPHATE 30 MG CAP PO SCH ×2 (09:03→21:16)
[2020-01-31] MEDS: PANTOPRAZOLE 40 MG TABEC PO SCH (09:03)
[2020-01-31] MEDS: ASPIRIN 81 MG TAB.CHEW PO SCH (09:03)
[2020-01-31] MEDS: glipiZIDE ER 5 MG TABER PO SCH (09:04)
[2020-01-31] MEDS: LACTOBACILLUS RHAMNOSUS GG 1 EACH CAP PO SCH (09:05)
[2020-01-31] MEDS: RIVAROXABAN 15 MG TAB PO SCH ×2 (09:05→21:00)
--- NOTE | 2020-01-31 09:08 | NUR ---
01/31/20 RD FOLLOW UP COMPLETED PLEASE REFER TO NUTRITION PROGRESS NOTE UNDER CARE ACTIVITY FOR ESTIMATED NUTRITION NEEDS. RD RECOMMENDATIONS: 1. RECOMMEND ADDING CCHO DIET RESTRICTION TO CURRENT DIET D/T ELEVATED GLUCOSE LEVEL ON 01/31/20: GLUCOSE 200, POC GLUCOSE [id number]. 2. CONTINUE ON PUREE/NTL DIET TOLERATED. 3. RD TO FOLLOW-UP 2-3 DAYS, HIGH RISK FIDE LYONS MS, RDN
--- NOTE | 2020-01-31 09:16 | NUR ---
PATIENT SITTING DOWN IN BED SLEEPING, AROUSABLE BY VOICE. NO DISTRESS NOTED. SCHEDULED MEDICATIONS DUE GIVEN. WILL CONTINUE TO MONITOR.
[2020-01-31] MEDS: DEXT 5% /NACL 0.9% 1,000 ML IV SCH (10:55)
[2020-01-31] MEDS: POTASSIUM CHLORIDE 10 MEQ TABER PO SCH ×2 (11:30→11:50)
--- NOTE | 2020-01-31 11:58 | NUR ---
PATIENT LYING DOWN IN BED, SLEEPING, AROUSABLE BY VOICE. NO DISTRESS NOTED. SCHEDULED MEDICATIONS DUE GIVEN. WILL CONTINUE TO MONITOR.
--- NOTE | 2020-01-31 12:08 | NUR ---
TRIED GIVING SCHEDULED POTASSIUM TABLETS PO, PATIENT KEEPS SPITTING OUT AND POCKETING IN FRONT OF MOUTH, UNABLE TO TAKE AT THIS TIME. POTASSIUM PO WASTED AT THIS TIME. WILL NOTIFY .
[2020-01-31] MEDS: SODIUM PHOS / POTASSIUM PHOS 1 PKT PDR PO SCH ×2 (13:28→16:58)
--- NOTE | 2020-01-31 15:04 | NUR ---
PATIENT SITTING DOWN IN BED, WATCHING TV. NO DISTRESS NOTED. DENIES ANY PAIN. CONDITION UNCHANGED. WILL CONTINUE TO MONITOR.
[2020-01-31 16:00] VITALS: BP 102/51
[2020-01-31] MEDS: metFORMIN 500 MG TAB PO SCH (16:58)
--- NOTE | 2020-01-31 18:36 | NUR ---
SCHEDULED MEDICATIONS DUE GIVEN. WILL CONTINUE TO MONITOR.
--- NOTE | 2020-01-31 19:18 | NUR ---
GAVE REPORT TO ARCHIVIST NURSE FOR CONTINUITY OF CARE. PATIENT IN STABLE CONDITION.
--- NOTE | 2020-01-31 19:20 | NUR ---
REPORT RECEIVED FROM ANDREW BRADSHAW DAYSHIFT NURSE AT BEDSIDE FOR CONTINUITY OF CARE, PT IN STABLE CONDITION.
--- NOTE | 2020-01-31 20:00 | NUR ---
PT IN BED AOX1 WITH N/C RUINING AT 2LITERS. PT NOTED WITH INTERMITTED COUGH AND DIMINISHED LUNG SOUNDS. PT HAS R UPPER DOUBLE LUMEN PICC LINE RUNNING D5NS AT 50MLS/HR. PT HAS CORONADO CATHETER IN PLACE AND DRAINING BLOODY URINE, NO S/S OF PAIN OR DISTRESS NOTED. ALL FALLS PRECAUTIONS IN PLACE. V/S FOLLOWS: T 97.0 P 689 R 18 B/P 107/58 02 98% ON ROOM AIR.
--- NOTE | 2020-01-31 21:00 | NUR ---
PT IN BED NO S/S OF PAIN OR DISTRESS NOTED N/C IN PLACE AND RUNNING AT 2 LITERS CORONADO CATHETER IN PLACE AND DRAINING BLOODY URINE. XARELTO WAS HELD DUE TO MD REQUEST BECAUSE PT URINE WAS BLOODY. PT WAS ALSO GIVEN ORDERED ARICEPT, LIPITOR AND TAMIFLU. PT WAS TURNED, CLEANED AND REPOSITIONED. V/S FOLLOWS: T 97.7 P 68R 18 B/P 108/50 02 97%. ALL FALLS PRECAUTIONS IN PLACE.
[2020-01-31] MEDS: ATORVASTATIN 20 MG TAB PO SCH (21:17)
[2020-01-31] MEDS: DONEPEZIL 10 MG TAB PO SCH (21:17)
[2020-02-01] VITALS: BP 108/50
--- NOTE | 2020-02-01 | NUR ---
PT IN BED ASLEEP N/C IN PLACE AND ALL FLUIDS RUNNING ORDERED. PT ZOSYN HUNG AND RUINING AT 100MLS/HR. V/S FOLLOWS: T 97.7 P 68 R 18 B/P 108/50 02 97% WITH 2 LITERS N/C. ALL FALLS PRECAUTIONS IN PLACE.
[2020-02-01] MEDS: PIPERACILLIN/TAZOBACTAM 3.375 GM in DEXTROSE 5% 50 ML IV SCH ×4 (00:33→18:01)
[2020-02-01] MEDS: DEXT 5% /NACL 0.9% 1,000 ML IV SCH ×2 (03:35→20:15)
--- NOTE | 2020-02-01 07:15 | NUR ---
RECEIVED REPORT FROM PODIATRIC FOOT AND ANKLE SPECIALIST NURSE. PATIENT LYING DOWN IN BED, NO DISTRESS NOTED. FLACC 0. AAOX2, CALM, COOPERATIVE, SKIN COLOR APPROPRIATE TO ETHNICITY, WARM TO TOUCH. SKIN INTACT. RESPIRATIONS EVEN, UNLABORED, ON O2 2L/MIN VIA NC. PATIENT REMOVED PICC LINE PER NIGHT RN, NO IV SITE AT THIS TIME. CORONADO CATHETER IN PLACE, DRAINING DARK MONIKA URINE, NO HEMATURIA NOTED. REVIEWED PLAN OF CARE WITH PATIENT. REINFORCEMENT NEEDED. SAFETY MEASURES IN PLACE, CALL LIGHT WITHIN REACH. WILL CONTINUE TO MONITOR.
[2020-02-01 07:52] LABS: BASOPHILS % (AUTO) 0.5 % (0.0-2.0); EOSINOPHILS # (AUTO) 1.7 K/uL (0-0.4); EOSINOPHILS % (AUTO) 20.6 % (0.0-4.0); HEMATOCRIT 27.6 % (36-52); HEMOGLOBIN 9.2 g/dL (12.0-18.0); LYMPHOCYTES # (AUTO) 2.1 K/uL (2.0-11.5); LYMPHOCYTES % (AUTO) 25.1 % (20.5-51.1); MEAN CORPUSCULAR HEMOGLOBIN 28 pg (27-31); MEAN CORPUSCULAR HGB CONC 34 g/dL (33-37); MEAN CORPUSCULAR VOLUME 82.7 fL (80-94); MONOCYTES # (AUTO) 0.6 K/uL (0.8-1.0); MONOCYTES % (AUTO) 7.8 % (1.7-9.3); NEUTROPHILS # (AUTO) 3.8 K/uL (1.8-7.7); PLATELET COUNT (AUTO) 224 K/uL (140-450); RED BLOOD CELL COUNT(AUTO) 3.34 MIL/uL (4.20-6.10); WHITE BLOOD COUNT (AUTO) 8.3 K/uL (4.8-10.8)
[2020-02-01] MEDS: ALBUTEROL SULFATE/IPRATROPIU 3 ML SOL IH SCH ×3 (07:57→20:17)
--- NOTE | 2020-02-01 07:57 | NUR ---
SATURATION 98% ON SUPPLEMENTAL OXYGEN AT 2 LPM VIA NC POST HHN THERAPY TITRATED FIO2 TO ROOM AIR PRECIPITATOR TO MONITOR AND ADVISE ASHLEY/RN Addendum: 02/01/20 at 0949 by Sean Macedo RT AUGUST NOTIFIED
[2020-02-01 08:00] VITALS: BP 121/54
[2020-02-01 08:01] LABS: ANION GAP 10.4 (8-16); CARBON DIOXIDE 23.9 mmol/L (21-32); CHLORIDE 109 mmol/L (98-107); CREATININE 0.7 mg/dL (0.6-1.3); GLUCOSE 95 mg/dL (74-106); POTASSIUM 3.3 mmol/L (3.5-5.1); SODIUM SERUM 140 mmol/L (136-145); UREA NITROGEN, BLOOD 10 mg/dL (7-18)
[2020-02-01 08:12] LABS: MAGNESIUM 1.9 mg/dL (1.8-2.4); PHOSPHORUS 2.3 mg/dL (2.5-4.9)
[2020-02-01] MEDS: BLOOD GLUCOSE MONITORING 1 DEV DEV FS SCH ×4 (08:22→20:48)
[2020-02-01] MEDS: LISINOPRIL 5 MG TAB PO SCH (09:00)
[2020-02-01] MEDS: LACTOBACILLUS RHAMNOSUS GG 1 EACH CAP PO SCH (09:15)
[2020-02-01] MEDS: SODIUM PHOS / POTASSIUM PHOS 1 PKT PDR PO SCH (09:15)
[2020-02-01] MEDS: ASPIRIN 81 MG TAB.CHEW PO SCH (09:15)
[2020-02-01] MEDS: MEMANTINE 10 MG TAB GT SCH ×2 (09:16→20:49)
[2020-02-01] MEDS: METOPROLOL 25 MG TAB PO SCH ×2 (09:17→21:00)
[2020-02-01] MEDS: OSELTAMIVIR PHOSPHATE 30 MG CAP PO SCH ×2 (09:18→20:50)
[2020-02-01] MEDS: RIVAROXABAN 15 MG TAB PO SCH ×2 (09:18→20:51)
[2020-02-01] MEDS: PANTOPRAZOLE 40 MG TABEC PO SCH (09:19)
[2020-02-01] MEDS: ASCORBIC ACID 500 MG TAB PO SCH (09:19)
[2020-02-01] MEDS: metFORMIN 500 MG TAB PO SCH ×2 (09:22→17:45)
[2020-02-01] MEDS: FERROUS SULFATE 325 MG TABEC PO SCH (09:22)
[2020-02-01] MEDS: glipiZIDE ER 5 MG TABER PO SCH (09:23)
--- NOTE | 2020-02-01 09:31 | NUR ---
SCHEDULED MEDICATIONS DUE GIVEN. WILL CONTINUE TO MONITOR.
[2020-02-01] MEDS ORDERED: POTASSIUM CHLORIDE 40 MEQ, LIDOCAINE MPF 1% 25 MG in NACL 0.9% 250 ML IV SCH (10:30)
--- NOTE | 2020-02-01 11:24 | NUR ---
SCHEDULED MEDICATIONS DUE GIVEN. NO DISTRESS NOTED. CONDITION UNCHANGED. WILL CONTINUE TO MONITOR.
[2020-02-01] MEDS: INSULIN LISPRO SLIDING SCALE 100 UNITS/ML VIAL SUBQ PRN ×3 (13:05→20:52)
--- NOTE | 2020-02-01 13:05 | NUR ---
SCHEDULED MEDICATIONS DUE GIVEN. WILL CONTINUE TO MONITOR.
--- NOTE | 2020-02-01 15:30 | NUR ---
PATIENT LYING DOWN IN BED SLEEPING, AROUSABLE BY VOICE. CONDITION UNCHANGED. WILL CONTINUE TO MONITOR.
[2020-02-01 16:00] VITALS: BP 126/62
--- NOTE | 2020-02-01 17:47 | NUR ---
PATIENT LYING DOWN IN BED SLEEPING, AROUSBLE BY VOICE. NO DISTRESS NOTED. FLACC 0. SCHEDULED MEDICATIONS DUE GIVEN. WILL CONTINUE TO MONITOR.
--- NOTE | 2020-02-01 19:24 | NUR ---
RECIEVED PT. AAOX1 , NID -O2 SATWNL , LOW FLAVIA SCALE , FALL RISK - BED ALARM OM , IV SITE INTACT AND PATENT . PLAN OF CARE DISCUSSED BUT POOR UNDERSTANDING DUE TO MENTAL STATUS . WILL CONT. TO MONITOR. CALL LIGHT WITHIN REACH.
--- NOTE | 2020-02-01 19:24 | NUR ---
GAVE REPORT TO WASH TANK TENDER NURSE FOR CONTINUITY OF CARE. PATIENT IN STABLE CONDITION.
--- NOTE | 2020-02-01 20:28 | NUR ---
RECEIVED PATIENT ON ROOM AIR, PULSE OX SAT 97%. SCHEDULED BREATHING TREATMENT ADMINISTERED. TOLERATED TX WELL WITHOUT ADVERSE SIDE EFFECTS. PT MADE AWARE OF ORDERED MEDICATION FREQUENCY AND INSTRUCTED TO CALL NEEDED FOR SOB. NO ACUTE RESPIRATORY DISTRESS NOTED AT THIS TIME. WILL CONTINUE TO MONITOR.
[2020-02-01] MEDS: DONEPEZIL 10 MG TAB PO SCH (20:49)
[2020-02-01] MEDS: ATORVASTATIN 20 MG TAB PO SCH (20:49)
--- NOTE | 2020-02-01 22:00 | NUR ---
MADE ROUNDS , NO SIGNS OF ACUTE DISTRESS NOTED AT THIS THIS - O2 SAT WNL .
[2020-02-02] VITALS: BP 100/60
--- NOTE | 2020-02-02 | NUR ---
MADE ROUNDS , FLACC O - O2 SAT WNL - RESTING ON BED COMFORTABLY .
[2020-02-02] MEDS: PIPERACILLIN/TAZOBACTAM 3.375 GM in DEXTROSE 5% 50 ML IV SCH ×4 (00:44→18:46)
--- NOTE | 2020-02-02 02:00 | NUR ---
SLEEPING - CHEST RISE AND FALL EQUALLY . WILLT. TO MONITOR.
--- NOTE | 2020-02-02 04:00 | NUR ---
MADE ROUNDS, NO SIGNS OF ACUTE DISTRESS NOTED AT THIS TIME.
[2020-02-02] MEDS: BLOOD GLUCOSE MONITORING 1 DEV DEV FS SCH ×4 (05:45→21:05)
[2020-02-02] MEDS ORDERED: RIVA15TA1 PO (06:09)
--- NOTE | 2020-02-02 06:44 | NUR ---
MADE ROUNDS , RESP. EVEN AND UNLABORED , WILL CONT. TO MONITOR.
--- NOTE | 2020-02-02 07:15 | NUR ---
RECEIVED PT FROM COMPREHENSIVE OPHTHALMOLOGIST NURSE AT BEDSIDE FOR CONTINUITY FOR CARE. PT AAOX1 , RESPIRATIONS EVEN AND UNLABORED ON ROOM AIR. PT HAS LOW FLAVIA SCALE. IV SITE INTACT AND PATENT, INFUSING IVF WELL. PLAN OF CARE DISCUSSED, PT CANNOT VERBALIZED UNDERSTANDING. UDPATED BOARD. SAFETY AND DROPLET PRECAUTIONS DUE TO POSITIVE INFLUENZA A, IN PLACE, CALL LIGHT WITHIN REACH, WILL CONTINUE TO MONITOR PATIENT.
[2020-02-02] MEDS: ALBUTEROL SULFATE/IPRATROPIU 3 ML SOL IH SCH ×3 (07:23→20:19)
[2020-02-02 08:15] VITALS: BP 105/56
[2020-02-02] MEDS: METOPROLOL 25 MG TAB PO SCH ×2 (09:00→21:00)
[2020-02-02] MEDS: LISINOPRIL 5 MG TAB PO SCH (09:00)
[2020-02-02] MEDS: glipiZIDE ER 5 MG TABER PO SCH (09:24)
[2020-02-02] MEDS: metFORMIN 500 MG TAB PO SCH ×2 (09:24→18:41)
[2020-02-02] MEDS: MEMANTINE 10 MG TAB GT SCH ×2 (09:24→21:05)
[2020-02-02] MEDS: ASPIRIN 81 MG TAB.CHEW PO SCH (09:24)
[2020-02-02] MEDS: LACTOBACILLUS RHAMNOSUS GG 1 EACH CAP PO SCH (09:24)
[2020-02-02] MEDS: FERROUS SULFATE 325 MG TABEC PO SCH (09:24)
[2020-02-02] MEDS: RIVAROXABAN 15 MG TAB PO SCH ×2 (09:25→21:02)
[2020-02-02] MEDS: ASCORBIC ACID 500 MG TAB PO SCH (09:25)
[2020-02-02] MEDS: OSELTAMIVIR PHOSPHATE 30 MG CAP PO SCH ×2 (09:25→21:00)
--- NOTE | 2020-02-02 09:25 | NUR ---
ORDERED MEDICATIONS GIVEN. PATIENT TOLERATED THEM WELL. BP MEDICATIONS HELD AT THIS TIME D/T DECREASED BP. FLACC-0, SAFETY AND DROPLET PRECAUTIONS IN PLACE, CALL LIGHT WITHIN REACH, WILL CONTINUE TO MONITOR PATIENT.
[2020-02-02] MEDS: PANTOPRAZOLE 40 MG TABEC PO SCH (09:33)
[2020-02-02 10:52] LABS: BASOPHILS % (AUTO) 0.5 % (0.0-2.0); EOSINOPHILS # (AUTO) 1.4 K/uL (0-0.4); EOSINOPHILS % (AUTO) 18.5 % (0.0-4.0); HEMATOCRIT 28.9 % (36-52); HEMOGLOBIN 9.5 g/dL (12.0-18.0); LYMPHOCYTES # (AUTO) 1.7 K/uL (2.0-11.5); MEAN CORPUSCULAR HEMOGLOBIN 28 pg (27-31); MEAN CORPUSCULAR HGB CONC 33 g/dL (33-37); MEAN CORPUSCULAR VOLUME 83.5 fL (80-94); MONOCYTES # (AUTO) 0.5 K/uL (0.8-1.0); MONOCYTES % (AUTO) 6.8 % (1.7-9.3); NEUTROPHILS # (AUTO) 4.1 K/uL (1.8-7.7); NEUTROPHILS % (AUTO) 52.2 % (42.2-75.2); PLATELET COUNT (AUTO) 281 K/uL (140-450); RED BLOOD CELL COUNT(AUTO) 3.45 MIL/uL (4.20-6.10); RED CELL DISTRIBUTION WIDTH 15.5 % (11.6-13.7)
[2020-02-02 11:01] LABS: WHITE BLOOD COUNT (AUTO) 7.8 K/uL (4.8-10.8)
[2020-02-02 11:07] LABS: PHOSPHORUS 2.6 mg/dL (2.5-4.9)
[2020-02-02 11:40] LABS: ANION GAP 12.3 (8-16); CARBON DIOXIDE 25.4 mmol/L (21-32); CHLORIDE 107 mmol/L (98-107); CREATININE 0.8 mg/dL (0.6-1.3); GLUCOSE 181 mg/dL (74-106); POTASSIUM 3.7 mmol/L (3.5-5.1); SODIUM SERUM 141 mmol/L (136-145); UREA NITROGEN, BLOOD 6 mg/dL (7-18)
--- NOTE | 2020-02-02 12:06 | NUR ---
ORDERED MEDICATION GIVEN. PATIENT TOLERATED IT. FLACC-0. PT RESTING WITH EYES CLOSED. CALL LIGHT WITHIN REACH, DROPLET, AND SAFETY PRECAUTIONS IN PLACE, WILL CONTINUE TO MONITOR PATIENT.
[2020-02-02] MEDS: INSULIN LISPRO SLIDING SCALE 100 UNITS/ML VIAL SUBQ PRN (12:35)
[2020-02-02] MEDS: DEXT 5% /NACL 0.9% 1,000 ML IV SCH ×2 (12:55→18:44)
[2020-02-02 16:00] VITALS: BP 108/56
--- NOTE | 2020-02-02 18:44 | NUR ---
ORDERED MEDICATIONS GIVEN. PATIENT TOLERATED THEM WELL. RESPIRATIONS EVEN AND UNLABORED ON ROOM AIR, SAFETY AND DROPLET PRECAUTIONS IN PLACE, CALL LIGHT WITHIN REACH, WILL CONTINUE TO MONITOR PATIENT.
--- NOTE | 2020-02-02 19:20 | NUR ---
RECIEVED PT. AAOX1 , NID , IV SITE INTACT AND PATENT , W/ FC - DRAINING CLEAR U.O . POC DISCUSSED BUT POOR UNDERSTANDING DUE TO MENTAL STATUS . WILL CONT. TO MONITOR.
--- NOTE | 2020-02-02 19:30 | NUR ---
REPORT GIVEN TO ROOM SERVICE SUPERVISOR NURSE AT BEDSIDE FOR CONTINUITY OF CARE. PATIENT IN STABLE CONDITION.
--- NOTE | 2020-02-02 20:19 | NUR ---
RECEIVED PATIENT ON ROOM AIR, PULSE OX SAT 98%. SCHEDULED BREATHING TREATMENT ADMINISTERED. TOLERATED TX WELL WITHOUT ADVERSE SIDE EFFECTS. NO ACUTE RESPIRATORY DISTRESS NOTED AT THIS TIME. WILL CONTINUE TO MONITOR.
[2020-02-02] MEDS: DONEPEZIL 10 MG TAB PO SCH (20:59)
[2020-02-02] MEDS: ATORVASTATIN 20 MG TAB PO SCH (21:00)
--- NOTE | 2020-02-02 22:00 | NUR ---
MADE ROUNDS , NOT IN ACUTE DISTRESS , SAFETY / FALL - IN PLACE - BED ALARM ON.
[2020-02-03] VITALS: BP 100/59
--- NOTE | 2020-02-03 | NUR ---
MADE ROUNDS , NOT IN ACUTE DISTRESS . BED ALARM ON .
[2020-02-03] MEDS: PIPERACILLIN/TAZOBACTAM 3.375 GM in DEXTROSE 5% 50 ML IV SCH ×4 (00:13→17:18)
--- NOTE | 2020-02-03 02:00 | NUR ---
MADE ROUNDS . SLEEPING . CHEST RISE AND FALL .
--- NOTE | 2020-02-03 04:00 | NUR ---
NOT IN ACUTE DISTRESS , CALL LIGHT WITHIN REACH - NO COMPLAIN MADE .
[2020-02-03] MEDS: BLOOD GLUCOSE MONITORING 1 DEV DEV FS SCH ×3 (05:24→16:28)
--- NOTE | 2020-02-03 06:58 | NUR ---
RESTING ON BED COMFORTABLY .
[2020-02-03] MEDS: ALBUTEROL SULFATE/IPRATROPIU 3 ML SOL IH SCH ×3 (07:06→20:07)
--- NOTE | 2020-02-03 07:10 | NUR ---
RECEIVED REPORT FROM REFRIGERATION PLANT OPERATOR NURSE. PT IS ASLEEP IN BED WITH NO SIGNS OF DISTRESS NOTED FLACC-0. L WRIST IV 22 GAUGE IS PATENT, ASYMPTOMATIC, AND INFUSING PER ORDER. SKIN IS INTACT AND CORONADO IS IN PLACE. RESPIRATIONS ARE CLEAR AND UNLABORED. SAFETY MEASURES IN PLACE, CALL LIGHT WITHIN REACH, AND WILL CONTINUE TO MONITOR.
[2020-02-03 07:27] LABS: BASOPHILS % (AUTO) 0.4 % (0.0-2.0); EOSINOPHILS # (AUTO) 1.5 K/uL (0-0.4); EOSINOPHILS % (AUTO) 17.7 % (0.0-4.0); HEMOGLOBIN 9.3 g/dL (12.0-18.0); LYMPHOCYTES % (AUTO) 24.7 % (20.5-51.1); MEAN CORPUSCULAR HEMOGLOBIN 28 pg (27-31); MEAN CORPUSCULAR HGB CONC 33 g/dL (33-37); MONOCYTES # (AUTO) 0.6 K/uL (0.8-1.0); MONOCYTES % (AUTO) 7.5 % (1.7-9.3); NEUTROPHILS # (AUTO) 4.1 K/uL (1.8-7.7); NEUTROPHILS % (AUTO) 49.7 % (42.2-75.2); PLATELET COUNT (AUTO) 336 K/uL (140-450); RED BLOOD CELL COUNT(AUTO) 3.38 MIL/uL (4.20-6.10); WHITE BLOOD COUNT (AUTO) 8.2 K/uL (4.8-10.8)
[2020-02-03 07:32] LABS: ANION GAP 11.7 (8-16); CARBON DIOXIDE 26.2 mmol/L (21-32); CHLORIDE 107 mmol/L (98-107); CREATININE 0.9 mg/dL (0.6-1.3); GLUCOSE 133 mg/dL (74-106); POTASSIUM 3.9 mmol/L (3.5-5.1); SODIUM SERUM 141 mmol/L (136-145); UREA NITROGEN, BLOOD 8 mg/dL (7-18)
[2020-02-03 07:34] LABS: PHOSPHORUS 2.7 mg/dL (2.5-4.9)
[2020-02-03 08:00] VITALS: BP 127/66
--- NOTE | 2020-02-03 09:48 | NUR ---
MEDICATIONS ADMINISTERED PER ORDER, PT TOLERATED WELL. NO DISTRESS NOTED, FLACC 0. RESPIRATIONS EVEN AND UNLABORED ON ROOM AIR. SAFETY MEASURES IN PLACE, CALL LIGHT WITHIN REACH. WILL CONTINUE TO MONITOR.
[2020-02-03] MEDS: metFORMIN 500 MG TAB PO SCH ×2 (10:02→17:19)
[2020-02-03] MEDS: FERROUS SULFATE 325 MG TABEC PO SCH (10:02)
[2020-02-03] MEDS: ASPIRIN 81 MG TAB.CHEW PO SCH (10:03)
[2020-02-03] MEDS: METOPROLOL 25 MG TAB PO SCH (10:03)
[2020-02-03] MEDS: LACTOBACILLUS RHAMNOSUS GG 1 EACH CAP PO SCH (10:03)
[2020-02-03] MEDS: PANTOPRAZOLE 40 MG TABEC PO SCH (10:04)
[2020-02-03] MEDS: ASCORBIC ACID 500 MG TAB PO SCH (10:04)
[2020-02-03] MEDS: LISINOPRIL 5 MG TAB PO SCH (10:04)
[2020-02-03] MEDS: OSELTAMIVIR PHOSPHATE 30 MG CAP PO SCH (10:05)
[2020-02-03] MEDS: MEMANTINE 10 MG TAB GT SCH (10:05)
[2020-02-03] MEDS: glipiZIDE ER 5 MG TABER PO SCH (10:06)
[2020-02-03] MEDS: RIVAROXABAN 15 MG TAB PO SCH (10:12)
[2020-02-03] MEDS: INSULIN LISPRO SLIDING SCALE 100 UNITS/ML VIAL SUBQ PRN (11:44)
--- NOTE | 2020-02-03 12:15 | NUR ---
PT IS AWAKE IN BED WITH NO REPORTS OF PAIN USING FLACC-0. PT REPOSITIONED TO SIDE LYING, IV IS PATENT AND INFUSING. MEDICATIONS ADMINISTERED PER ORDER AND TOLERATED WELL. SAFETY MEASURES IN PLACE, CALL LIGHT WITHIN REACH, AND WILL CONTINUE TO MONITOR.
--- NOTE | 2020-02-03 14:03 | NUR ---
PT IS ASLEEP IN BED WITH NO REPORTS OF PAIN USING FLACC SCALE. PT WAS CHANGED AND REPOSITIONED AND TOLERATED WELL. SAFETY MEASURES IN PLACE, CALL LIGHT WITHIN REACH, AND WILL CONTINUE TO MONITOR.
[2020-02-03 16:00] VITALS: BP 104/54
[2020-02-03 17:20] VITALS: BP 104/54
--- NOTE | 2020-02-03 17:23 | NUR ---
PT IS AWAKE AND IN BED WITH NO SIGNS OF DISTRESS NOTED USING FLACC. MEDICATIONS ADMINISTERED PER ORDERS AND TOLERATED WELL. ORDERS TO BE DISCHARGED. SAFETY MEASURES IN PLACE, CALL LIGHT WITHIN REACH, AND WILL CONTINUE TO MONITOR.
--- NOTE | 2020-02-03 19:10 | NUR ---
RECIEVED PT AAOX1 , NID , IV SITE INTACT AND PATENT , FOR DISCHARGE TODAY , WAITING FOR POURER CRANE LADLE. FC AND IV TO BE REMOVED UPON DISCHARGE PER CHARMAINE .
--- NOTE | 2020-02-03 19:10 | NUR ---
PT ENDORSED TO NIGHT NURSE FOR CONTINUITY OF CARE.
--- NOTE | 2020-02-03 20:43 | NUR ---
DICHARGED PICKED UP BY [facility] DOCTOR OF NATUROPATHIC MEDICINE CREW . PT STABLE . DISCHARGE PAPERS GIVEN . IV CANNULLA REMOVED - INTACT NEEDLE - MIN. BLEEDING , FC REMOVED ORDERED - NO BLEEDING ON U.O - PROCEDURE TOLERATED WELL.
== END 2020-02-03 20:45 | DRG 871 ==
LOC: MED 13:25 → MTU 16:25
PROVIDERS: ADMIT General Practice; ATTEND General Practice
PROC: 02HV33Z Insertion of Infusion Device into Superior Vena Cava, Percutaneous Approach (ICD-10-PCS; principal; 2020-01-29)
PROC: B548ZZA Ultrasonography of Superior Vena Cava, Guidance (ICD-10-PCS; 2020-01-29)
DX: A41.9 Sepsis, unspecified organism (principal); J69.0 Pneumonitis due to inhalation of food and vomit; I21.A1 Myocardial infarction type 2; E87.1 Hypo-osmolality and hyponatremia; E44.0 Moderate protein-calorie malnutrition; E78.5 Hyperlipidemia, unspecified; G30.9 Alzheimer's disease, unspecified; F02.80 Dementia in other diseases classified elsewhere, unspecified severity, without behavioral disturbance, psychotic disturbance, mood disturbance, and anxiety; J10.1 Influenza due to other identified influenza virus with other respiratory manifestations; K21.9 Gastro-esophageal reflux disease without esophagitis; I10 Essential (primary) hypertension; F41.9 Anxiety disorder, unspecified; E11.65 Type 2 diabetes mellitus with hyperglycemia; E11.21 Type 2 diabetes mellitus with diabetic nephropathy; E87.6 Hypokalemia; D64.9 Anemia, unspecified; E83.39 Other disorders of phosphorus metabolism; E83.42 Hypomagnesemia; I45.10 Unspecified right bundle-branch block; Z86.711 Personal history of pulmonary embolism; Z68.23 Body mass index [BMI] 23.0-23.9, adult
CPT/HCPCS: 36415; 70450; 71045; 71275; 80048; 80053; 80305; 81003; 82607; 82728; 82746; 82948; 83036; 83540; 83605; 83690; 83735; 83880; 84100; 84134; 84443; 84484; 85025; 85045; 85379; 85610; 85730; 87040; 87070; 87081; 87086; 87205; 87804; 89220; 92610; 93005; 93925; 93970; 94640; 96361; 96365; 99285; C1751; J0696; J1644; J2001; J2543; J2916; J3475; J3480; J7030; J7042; J7060; Q0092; Q9967

== ENCOUNTER 2021-03-27 08:16 | Emergency (ER) | payer OTHER ==
[~2021-03-27] VITALS: Ht 172.7 cm; Wt 60.3 kg
[~2021-03-27 08:16] MED LIST changes: +AZIT250T3 PO; +CALC-1141 PO; -COL100L GT; +DEXT15SY7 PO; +DOCU-299 PO; -LACT-81 PO; -LANS15EC28 PO; -MEMA10TA GT; +MEMA10TA PO; -METF1000 PO; +METF500T2 PO; +MULT-1868 PO; -MULT5SOL7 GT; +OMEP20EC11 PO; -PIPE1SOL IV; +RIVA20TA PO; -SLIDE SUBQ; -[UNRECOGNIZED DRUG - CODE] GT; +[UNRECOGNIZED DRUG - OTHER] PO
[2021-03-27 08:23] VITALS: BP 100/66
[2021-03-27 10:25] LABS: ANION GAP 13.5 (8-16); CARBON DIOXIDE 23.6 mmol/L (21-32); CHLORIDE 100 mmol/L (98-107); GLUCOSE 239 mg/dL (74-106); POTASSIUM 4.1 mmol/L (3.5-5.1); SODIUM SERUM 133 mmol/L (136-145); UREA NITROGEN, BLOOD 21 mg/dL (7-18)
[2021-03-28 09:37] VITALS: BP 125/77
== END 2021-03-28 09:42 ==
LOC: MED 08:16
DX: R06.00 Dyspnea, unspecified (principal); E11.9 Type 2 diabetes mellitus without complications; I10 Essential (primary) hypertension; K21.9 Gastro-esophageal reflux disease without esophagitis; F03.90 Unspecified dementia, unspecified severity, without behavioral disturbance, psychotic disturbance, mood disturbance, and anxiety; Z79.899 Other long term (current) drug therapy; Z79.84 Long term (current) use of oral hypoglycemic drugs; Z85.841 Personal history of malignant neoplasm of brain
CPT/HCPCS: 36415; 36569; 71045; 71275; 80048; 84484; 85379; 93005; 99285; Q9967

== ENCOUNTER 2022-05-02 01:21 | Emergency (ER) | payer OTHER ==
[~2022-05-02] VITALS: Ht 175.3 cm; Wt 63.5 kg
[~2022-05-02 01:21] MED LIST changes: +AMIO200T66 PO; +ASCO500T95 PO; +ASPI81CT95 PO; -AZIT250T3 PO; +ERTA1VIA2 IV; +FAMO-90 PO; +INSU100S45 SUBQ; +METF-1139 PO; -METF500T2 PO; +VITD400 PO; +ZINC50TA76 PO
--- NOTE | 2022-05-02 01:21 | NUR ---
0115- PT BIBA CODE [address] LUNDY AT BEDSIDE
--- NOTE | 2022-05-02 01:24 | NUR ---
EDITH LUNDY CALLED TIME OF 0124.
--- NOTE | 2022-05-02 01:24 | NUR ---
PT PRONOUNCED AT THIS TIME BY DR. LUNDY
--- NOTE | 2022-05-02 01:25 | NUR ---
PT BROUGHT IN ON A RUN 02 WAS 6 LITERS N/C. 02 WAS 80% HEAT RATE AT 30 BASE LINE 02 WAS AT 75%. PT IS A DNR CODE STATUS. PT AND WAS PRONOUNCED AT 0124.
--- NOTE | 2022-05-02 01:33 | NUR ---
called pt daughter raghav to provide pt update. no answer.
--- NOTE | 2022-05-02 02:00 | NUR ---
[facility] CALLED CASE RELASED TO [facility] CASE # [id number]. LEFT MESSAGE FOR [facility]LEY.
--- NOTE | 2022-05-02 03:21 | NUR ---
STILL AWAITING [facility]'S RETURN CALL, CALLED JOSSUE ESTRELLA AT [phone]. WAS ABLE TO OBTAIN PT PRIMARY MD CULLEN FRANCIS NUMBER [phone]. WILL ENDORSE TO AM TO FOLLOW WITH CONTACTING PT PRIMARY MD. ALSO AWAITING RETURN CALL FROM PRIMARY CONTACT SVITLANA.
--- NOTE | 2022-05-02 05:24 | NUR ---
CALLED CUSTOMER ENGAGEMENT MANAGER, SPOKE TO ADAM BARR, STATED SOMEONE WILL CALL BACK WITH CASE NUMBER.
--- NOTE | 2022-05-02 05:26 | NUR ---
CALLED SVITLANA, DAUGHTER, NO ANSWER. PHONE GOES STRAIGHTER TO VOICEMAIL
--- NOTE | 2022-05-02 05:39 | NUR ---
SPOKE TO CARLA TORRES, FROM [facility], SHE HAS RELESED THE BODY. NO CASE NUMBER. STATED "RELEASE IT UNDER MY NAME, CARLA TORRES".
--- NOTE | 2022-05-02 06:55 | NUR ---
BODY MOVED TO [facility] ROOM 128
== END 2022-05-02 01:24 ==
LOC: MED 01:21
DX: J96.00 Acute respiratory failure, unspecified whether with hypoxia or hypercapnia (principal); I46.9 Cardiac arrest, cause unspecified; K21.9 Gastro-esophageal reflux disease without esophagitis; E11.22 Type 2 diabetes mellitus with diabetic chronic kidney disease; I12.0 Hypertensive chronic kidney disease with stage 5 chronic kidney disease or end stage renal disease; N18.6 End stage renal disease; Z98.890 Other specified postprocedural states; Z79.4 Long term (current) use of insulin; Z79.899 Other long term (current) drug therapy
CPT/HCPCS: 99285